=== PATIENT | male | born 1945 ===

== ENCOUNTER 2025-06-04 09:06 | Emergency (ER) | payer MEDICAID, SELFPAY ==
--- NOTE | ~2025-06-04 | XR_ITS ---
EXAMINATION: XR FOOT, RIGHT CLINICAL INFORMATION: pain, swelling COMPARISON: None available. TECHNIQUE: AP, lateral, and oblique views of the right foot. FINDINGS: There is diffuse low bone mineral density. There is a transverse fracture across the central region of the proximal phalanx of the great toe. There is a 9 mm mass dorsal and medial to the distal phalanx of the great toe that does not erode into the cortex. XR/XR foot RT min 3V IMPRESSION: There is severe diffuse osteopenia which limits evaluation for nondisplaced fractures. There is a mildly displaced fracture involving the middle diaphysis of the proximal phalanx of the great toe. 9 mm soft tissue mass is present in the dorsal medial distal great toe. Electronically signed by: Anthony Lema MD 06/04/2025 10:55 AM EDT
--- NOTE | ~2025-06-04 | XR_ITS ---
EXAMINATION: XR CHEST CLINICAL INFORMATION: cough COMPARISON: None available. TECHNIQUE: Frontal view of the chest was obtained. FINDINGS: The cardiac silhouette is enlarged. There is moderate vascular calcification in the aortic arch. There are prominent perihilar pulmonary markings. There is widening of the superior mediastinum. XR/XR chest 1V IMPRESSION: Cardiomegaly and pulmonary vascular congestion. There is widening of the superior mediastinum. This could be related to thyroid goiter, but other etiologies such as lymphoma, lymphadenopathy, thymic enlargement or mass, or other mass/neoplasm is not ruled out. Electronically signed by: Anthony Lema MD 06/04/2025 11:00 AM EDT
--- NOTE | ~2025-06-04 | CT_ITS ---
EXAMINATION: CT HEAD WITHOUT CONTRAST CLINICAL INFORMATION: Fall, on Lovenox. COMPARISON: None available. TECHNIQUE: Contiguous axial imaging was performed from the skull base to vertex without intravenous administration of contrast. This CT examination was performed using dose optimization techniques as appropriate, variously including the following: *Automated exposure control *Adjustment of mA and/or kV according to patient size (this includes techniques or standardized protocols for targeted exams where dose is matched to indication/reason for exam; i.e. extremities or head) *Use of iterative reconstruction technique FINDINGS: There is no evidence of intracranial hemorrhage or extra-axial fluid collection. There is no mass effect, or edema. No CT evidence of acute territorial infarct. Ventricles, sulci, and cisterns are diffusely somewhat prominent in keeping with age advanced cerebral and cerebellar volume loss. No hydrocephalus. No midline shift. Negative hyperdense MCA sign. Negative insular ribbon sign. Patchy periventricular and deep white matter hypoattenuation is consistent with moderate to severe small vessel ischemic changes. 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 There is an old lacunar type infarct in the right anterior makenna. Mild atheromatous calcification of the bilateral carotid siphons and V4 segments vertebral arteries bilaterally. Globes and orbital contents image normally. No extracranial soft tissue abnormalities. Mild mucosal disease in the paranasal sinuses. The mastoid air cells, and tympanic cavities are normally aerated. No suspicious bony abnormalities. There are no acute fractures evident. CT/CT head/brain wo IV con IMPRESSION: 1. No acute intracranial abnormality. No fracture evident 2. Chronic changes as discussed. Electronically signed by: Lg Sears MD 06/04/2025 10:37 AM EDT
[2025-06-04 09:20] VITALS: BP 148/63; BP 152/76; PULSE 75; PULSE 79; RESP 18; TEMP 37.1; O2SAT 96; BMI 21.7
--- NOTE | 2025-06-04 09:51 | ED_ITS ---
HPI - Fall General Chief Complaint: Fall Stated Complaint: FALL,-HS,RLE PAIN,+CCOLLAR,+COVID PER EMS Time Seen by Provider: 06/04/25 09:22 Source: patient, EMS and old records reviewed Mode of arrival: EMS Limitations: no limitations History of Present Illness ED Provider: LETI HPI Narrative: 79 yo male from [facility] full code - ESRD on HD MWF, HTN, HLD, DVT on therapeutic lovenox who was dx with COVID 3 days ago at [facility]. He has been having R great toe pain for a few days as well. He denies trauma. He has no numbness or weakness. He notes he was trying to get up out of WC today and couldn't bear his weight so he slipped and fell to the ground. He denies headstrike. He c/o pain to the R foot. Staff states he was seen at 7am and then called for help after fall. No prolonged downtime. He reports no hx of gout in past. MD complaint: fall Onset (ago): minute(s) ([employer]) Fall from: wheelchair Fall witnessed: no Place fall occurred: [facility] Loss of consciousness: none Prolonged down time: no Symptoms prior to fall: none Context: tripped/slipped Severity: mild Associated symptoms (after fall): other (R foot pain pre fall which he states caused the fall ) Related Data Allergies Allergy/AdvReac Type Severity Reaction Status Date / Time No Known Allergies Allergy Verified 06/04/25 09:22 Review of Systems 2 Review of Systems: Constitutional : No Fever, No Chills ENT/Mouth : No Ear Pain, No Hoarseness, No sore throat Eyes: No Eye Pain, No Swelling, No Redness, No Foreign Body Cardiovascular : No Chest Pain, No SOB Respiratory : No Cough, No Dyspnea Gastrointestinal : No Nausea, No Vomiting, No Diarrhea, No abdominal Pain Genitourinary : No Dysuria, No Hematuria Musculoskeletal : positive joint pain, No Myalgias, No Joint Swelling Skin : No Skin lacerations, No rash Neuro : No Weakness, No Numbness, No Loss of Consciousness, No Dizziness, No Headache All other systems reviewed and are negative PMFSH Past Medical History Attestation statement: The following information was validated with the patient. Source: old records reviewed Medical History ESRD (end stage renal disease) HLD (hyperlipidemia) HTN (hypertension) DVT (deep venous thrombosis) Social History Social History (Updated 06/04/25 @ 09:59 by Elva Mars DO) Patient Tobacco Use Status: Tobacco use Unknown Advance Directives: Yes Advance Directives Information Provided: No Advance Directives on File: No Physical Exam 2 Vital Signs: Vital Signs: Last Vital Signs Temp 98.7 F 06/04/25 09:20 Pulse 79 06/04/25 09:20 Resp 18 06/04/25 09:20 BP 148/63 H 06/04/25 09:20 Pulse Ox 96 06/04/25 09:20 O2 Del Method Room Air 06/04/25 09:20 BMI result Body Mass Index 21.7 Appearance: Alert. Oriented X3. No acute distress. Eyes: Pupils equal, round and reactive to light. ENT: Pharynx normal. Neck: Normal inspection. Neck supple. no midline neck pain or ttp CVS: Normal heart rate and rhythm. Pulses normal. LUE avf + thrill felt Respiratory: No respiratory distress. Breath sounds normal. coarse cough Abdomen: Soft and nontender. Skin: Skin warm and dry. Normal skin color. Normal skin turgor. Extremities: No lower extremity edema. R foot ttp along 1st MTP and mild warmth and redness. ttp along the 1st MTP joint Neuro: Oriented X 3. No motor deficit. No sensory deficit. CN2-12 intact Medications Administered Discontinued Medications Generic Name Dose Route Start Last Admin Trade Name Freq PRN Reason Stop Dose Admin Acetaminophen 650 mg 06/04/25 09:35 06/04/25 10:05 Acetaminophen 325 Mg Tablet PO 06/04/25 09:36 650 mg ONCE ONE Administration Ceftriaxone Sodium 1 gm 06/04/25 09:35 06/04/25 10:00 Ceftriaxone Sodium 1 Gm Vial IVPUSH 06/04/25 09:36 1 gm ONCE ONE Administration Oxycodone HCl 5 mg 06/04/25 09:33 06/04/25 10:04 Oxycodone Hcl Immed Release 5 Mg Tablet PO 06/04/25 09:34 5 mg ONCE ONE Administration Procedures Orthopedic Splinting/Casting Injury #1: Side: right Lower Extremity Injury Location: foot Lower Extremity Immobilizer: post-op shoe Medical Decision Making Medical Decision Making MDM Narrative: 79 yo male from [facility] full code - ESRD on HD MWF, HTN, HLD, DVT on therapeutic lovenox here with c/o mechanical trip and fall after trying to put weight on R foot - he has pain in R great toe for a few days. He denies any known injury - numbness. When he fell he denies injury to head/neck. He was just dx with COVID as well 3 days ago which could be source of fever. At this time possible gout, COVID, viral infection, pneumonia - ICH will obtain labs, cultures, CXR, foot xray, CT head for ICH given lovenox use, uric acid. PO pain control and tylenol. Differential Diagnosis Differential Diagnoses: The differential diagnosis associated with the presentation includes gout, cellulitis, COVID, fall Admission/Observation Consideration of admission/observation: Escalation of care including admission/observation considered no hypoxia has broken toe no signs of infection on foot can be sent out with outpatient imaging and work up Lab Data MDM Lab Attestation statement: I reviewed the patient's lab results. 06/04/25 10:01 06/04/25 10:01 Labs: Lab Results 06/04/25 06/04/25 Range/Units 10:00 10:01 WBC 4.6 L (4.8-10.8) X10*3/uL RBC 3.61 L (4.60-5.80) X10*6/uL Hgb 11.6 L (14.0-18.0) g/dl Hct 35.4 L (42.0-52.0) % MCV 98.1 H (80.0-98.0) fL MCH 32.1 (27.0-33.0) pg MCHC 32.8 (31.0-36.0) g/dl RDW 15.7 (11.0-16.0) % Plt Count 192 (160-400) X10*3/uL MPV 10.2 (9.4-12.4) fL Immature Gran % (Auto) 0.2 (0.0-0.4) % Neut % (Auto) 70.2 (45-73) % Lymph % (Auto) 12.0 L (20-40) % [place] % (Auto) 13.9 H (2-11) % Eos % (Auto) 2.6 (0-4) % Baso % (Auto) 1.1 (0-2) % Lymph # (Auto) 0.6 L (1.2-4.9) X10*3/uL [place] # (Auto) 0.6 (0.1-1.2) X10*3/uL Eos # (Auto) 0.1 (0.0-0.4) X10*3/uL Baso # (Auto) 0.1 (0.0-0.2) X10*3/uL Abs Immat Gran (auto) 0.01 (0.00-0.03) X10*3/uL Absolute Neuts (auto) 3.2 (2.0-8.3) x10*3/uL Absolute Nucleated RBC 0.000 (0.0-0.012) X10*3/uL Nucleated RBC % (auto) 0.0 (0.0-0.2) /100WBC ESR 90 H (0-15) MM/HR Sodium 135 (135-145) mmol/L Potassium 5.1 (3.3-5.1) mmol/L Chloride 96 (96-108) mmol/L Carbon Dioxide 24 (22-29) mmol/L Anion Gap 20 (12-20) BUN 43 H (9-16) mg/dL Creatinine 7.75 H* (0.5-1.4) mg/dL Estim Creat Clear Calc 6.8 Estimated GFR 7 Random Glucose 86 (60-115) mg/dL Lactic Acid 1.2 (0.5-2.0) mmol/L Calcium 9.5 (8.4-10.2) mg/dL Magnesium 2.0 (1.6-2.6) mg/dL Total Bilirubin 0.4 (0.0-1.0) mg/dL Direct Bilirubin 0.1 (0.0-0.5) mg/dL AST 40 H (5-37) U/L ALT 17 (0-40) U/L Alkaline Phosphatase 86 (39-117) U/L C-Reactive Protein 6.24 H (< or = 0.50) mg/dL Total Protein 8.8 H (6.5-8.0) g/dL Albumin 3.9 (3.5-5.0) g/dL Influenza Type A (PCR) NEGATIVE (Negative) Influenza Type B (PCR) NEGATIVE (Negative) RSV RNA Qual (PCR) NEGATIVE (Negative) SARS-CoV-2 RNA (RT-PCR) POSITIVE A (Negative) Independent Interpretation I performed an independent interpretation of an: Plain X-Ray (abnormal ) and CT Scan (no trauma) Radiology Impression Discussion of test interpretation with radiology: I have reviewed the radiologist's reading. Independent Historian Clinical information obtained from an independent historian. History obtained from or confirmed by: EMS External Record Review External record reviewed: Outpatient record Prescription Management I considered prescription management with: Pain Medication Discharge Plan Discharge Clinical Impression: COVID-19, Abnormal chest x-ray Closed fracture of great toe Qualifiers: Encounter type: initial encounter Phalanx: unspecified phalanx Fracture alignment: displaced Laterality: right Qualified Code(s): S92.401A - Displaced unspecified fracture of right great toe, initial encounter for closed fracture Patient Disposition: Home, Self-Care Instructions: COVID-19 and Chronic Health Conditions (ED), Toe Fracture (ED) Additional Instructions: head CT normal labs reassuring CXR abnormal needs outpatient CT chest after illness to make sure abnormal mediastinum improves great toe has toe fracture - wear boot and no weight bearing until he sees orthopedics return for worsening pain, swelling, cold foot, redness, or any other concerns need to schedule appointment with orthopedics FINDINGS: There is diffuse low bone mineral density. There is a transverse fracture across the central region of the proximal phalanx of the great toe. There is a 9 mm mass dorsal and medial to the distal phalanx of the great toe that does not erode into the cortex. XR/XR foot RT min 3V IMPRESSION: There is severe diffuse osteopenia which limits evaluation for nondisplaced fractures. There is a mildly displaced fracture involving the middle diaphysis of the proximal phalanx of the great toe. 9 mm soft tissue mass is present in the dorsal medial distal great toe. XR/XR chest 1V IMPRESSION: Cardiomegaly and pulmonary vascular congestion. There is widening of the superior mediastinum. This could be related to thyroid goiter, but other etiologies such as lymphoma, lymphadenopathy, thymic enlargement or mass, or other mass/neoplasm is not ruled out. Referrals: [facility] [Provider Group] Print Language: Indonesian
[2025-06-04] MEDS: oxyCODONE HCl Immed Release 5 MG TABLET PO (10:04)
[2025-06-04 10:09] LABS: MANUAL DIFF FLAG NO
[2025-06-04 10:11] LABS: Hematocrit 35.4 % (42.0-52.0); Hemoglobin 11.6 g/dl (14.0-18.0); Imm Gran Abs Auto 0.01 X10*3/uL (0.00-0.03); Imm Gran Pct Auto 0.2 % (0.0-0.4); Lymphocytes Absolute Auto 0.6 X10*3/uL (1.2-4.9); Mean Corpuscular HGB Conc 32.8 g/dl (31.0-36.0); Mean Corpuscular Hemoglobin 32.1 pg (27.0-33.0); Mean Corpuscular Volume 98.1 fL (80.0-98.0); NRBC Abs Auto 0.000 X10*3/uL (0.0-0.012); NRBC Pct Auto 0.0 /100WBC (0.0-0.2); Platelet Count 192 X10*3/uL (160-400); Red Blood Count 3.61 X10*6/uL (4.60-5.80); White Blood Count 4.6 X10*3/uL (4.8-10.8)
--- OUTSIDE RECORDS SUMMARY | 2025-06-04 10:21 | XMS_ITS | Encounter Summary ---
Author Organization [facility], Address [address] [place] [address] Phone Care Team Providers Care Turbine Inspector Name Role Phone Unavailable Primary Care Provider Unavailabl e Encounter Details Date Type Department Care Team (Late st Contact Info) Description 03/21/2025 Orders Only [facility], - [facility] [address] [place] [id number] Allie Montoya [address] [place] [phone] Social History Tobacco Use Types Packs/Day Years Used Date Smoking Tobacco: Never Assessed Sex and Gender Information Value Date Recorded Sex Assigned at Not on file Legal Sex Male 10:51 AM EDT Gender Identity Not on file Sexual Orientation Not on file documented as of this encounter Plan of Treatment Not on file documented as of this encounter Visit Diagnoses Not on filedocumented in this encounter
--- OUTSIDE RECORDS SUMMARY | 2025-06-04 10:21 | XMS_ITS | Encounter Summary ---
Author Organization [employer] Address [address] [place] [address] Care Team Providers Care Auger Mill Operator Name Role Phone Nakul Elizalde MD Primary Care Provider [phone] Encounter Details Date Type Department Care Team (Late st Contact Info) Description 01/30/2025 Lab Requisition [facility] - Main Lab [address] [facility] [place] [address] Nakul Elizalde MD [address] [place] [address] Essential (primary) hypertension; Vitamin D deficiency, unspecified; Hypothyroidism, unspecified Social History Tobacco Use Types Packs/Day Years Used Date Smoking Tobacco: Never Assessed Sex and Gender Information Value Date Recorded Sex Assigned at Not on file Legal Sex Male 12:21 PM EDT Gender Identity Not on file Sexual Orientation Not on file documented as of this encounter Plan of Treatment Not on file documented as of this encounter Procedures Procedure Name Priority Date/Time Associated Diagnosis Comments VITAMIN D 25 HYDROXY Routine 01/30/2025 5:38 AM EDT Essential (primary) hypertension Vitamin D deficiency, unspecified Hypothyroidism, unspecified COMPLETE BLOOD COUNT Routine 01/30/2025 5:38 AM EDT Essential (primary) hypertension Vitamin D deficiency, unspecified Hypothyroidism, unspecified THYROID STIMULATING HORMONE Routine 01/30/2025 5:38 AM EDT Essential (primary) hypertension Vitamin D deficiency, unspecified Hypothyroidism, unspecified BASIC METABOLIC PANEL Routine 01/30/2025 5:38 AM EDT Essential (primary) hypertension Vitamin D deficiency, unspecified Hypothyroidism, unspecified documented in this encounter Results * Thyroid stimulating hormone (01/30/2025 5:38 AM EDT) TSH 1.10 0.40 - 4.00 mcIU/mL LAB CHEMISTRY METHOD 01/30/2025 10:43 PM EDT [facility] Blood Venous blood specimen / Unknown Venipuncture / Unknown 01/30/2025 5:38 AM EDT 01/30/2025 12:25 PM EDT us Nakul Elizalde MD LAB BLOOD ORDERABLES Final R esult Performing Organization Address [facility]/ZIP Co de Phone Number [facility] [address] [place] [address], [place] [phone] * (ABNORMAL) Vitamin D 25 hydroxy (01/30/2025 5:38 AM EDT) Pathologist [facility] Vit D, 25-Hydroxy 18.9(L) 30.0 - 80.0 ng/mL LAB CHEMISTRY METHOD 01/30/2025 10:43 PM EDT [facility] Blood Venous blood specimen / Unknown Venipuncture / Unknown 01/30/2025 5:38 AM EDT 01/30/2025 12:25 PM EDT us Nakul Elizalde MD [facility] Per[facility] Organization Address [facility]/ZIP Ne de Phone Number [facility] [address] [place] [address], [place] [phone] * (ABNORMAL) Basic metabolic panel (01/30/2025 5:38 AM EDT) Pathologist [facility] Sodium 133 133 - 145 mmol/L LAB CHEMISTRY METHOD 01/30/2025 10:01 PM EDT [facility] Potassium 5.0 3.5 - 5.5 mmol/L LAB CHEMISTRY METHOD 01/30/2025 10:01 PM EDT [facility] Chloride 96 96 - 110 mmol/L LAB [facility] CO2 24 21 - 32 mmol/L LAB CHEMISTRY METHOD 01/30/2025 10:[address] [facility] Anion Gap 13(H) 3 - 11 LAB CHEMISTRY METHOD 01/30/2025 10:[address] [facility] Glucose 69(L) 70 - 100 mg/dL LAB CHEMISTRY METHOD 01/30/2025 10:[address] [facility] BUN 68(H) 5 - 25 mg/dL LAB CHEMISTRY METHOD 01/30/2025 10:[address] [facility] Creatinine 8.52(H) 0.70 - 1.30 mg/dL LAB CHEMISTRY METHOD 01/30/2025 10:[address] [facility] eGFR 6(L) >=60 mL/min/1. 73m2 LAB CHEMISTRY METHOD 01/30/2025 10:[address] [facility] Comment:Calculation based on the Chronic Kidney Disease Epidemiology Collaboration (CKD-EPI) equation refit without adjustment for race. BUN/Creatinine Ratio 8.0 LAB CHEMISTRY METHOD 01/30/2025 10:[address] [facility] Calcium 10.2 8.5 - 10.5 mg/dL LAB CHEMISTRY METHOD 01/30/2025 10:[address] [facility] Blood Venous blood specimen / Unknown Venipuncture / Unknown 01/30/2025 5:38 AM EDT 01/30/2025 12:25 PM EDT us Nakul Elizalde MD LAB BLOOD ORDERABLES Final R esult [facility] [address] [place] [address], * (ABNORMAL) Complete blood count (01/30/2025 5:38 AM EDT) WBC 5.3 4.8 - 10.8 K/mcL LAB HEMETOLOGY METHOD 01/30/2025 12:[address] [facility] RBC 4.10(L) 4.50 - 5.50 M/mcL LAB HEMETOLOGY METHOD 01/30/2025 12:[address] [facility] Hemoglobin 12.8(L) 13.5 - 17.5 g/dL LAB HEMETOLOGY METHOD 01/30/2025 12:[address] [facility] Hematocrit 41.4(L) 42.0 - 54.0 % LAB HEMETOLOGY METHOD 01/30/2025 12:[address] [facility] MCV 100.7(H) 79.0 - 98.0 FL LAB HEMETOLOGY METHOD 01/30/2025 12:[address] [facility] MCH 31.1 27.0 - 32.0 pcg LAB HEMETOLOGY METHOD 01/30/2025 12:[address] [facility] MCHC 30.9(L) 32.0 - 37.0 g/dL LAB HEMETOLOGY METHOD 01/30/2025 12:[address] [facility] RDW 15.1(H) 11.0 - 15.0 % LAB HEMETOLOGY METHOD 01/30/2025 12:[address] [facility] Platelets 162 130 - 400 K/mcL LAB HEMETOLOGY METHOD 01/30/2025 12:[address] [facility] MPV 10.9 7.0 - 11.0 FL LAB HEMETOLOGY METHOD 01/30/2025 12:[address] [facility] NRBC 0.0 <1.0 % LAB HEMETOLOGY METHOD 01/30/2025 12:[address] [facility] NRBC Absolute 0.00 <0.10 K/mcL LAB HEMETOLOGY METHOD 01/30/2025 12:47 PM EDT [facility] Blood Venous blood specimen / Unknown Venipuncture / Unknown 01/30/2025 5:38 AM EDT 01/30/2025 12:25 PM EDT Nakul Elizalde MD LAB BLOOD ORDERABLES Final R esult [facility] ([facility]) [facility] [address] [place] [address], documented in this encounter Visit Diagnoses Diagnosis Essential (primary) hypertension Unspecified essential hypertension Vitamin D deficiency, unspecified Hypothyroidism, unspecified documented in this encounter Care Teams Auger Mill Operator Relationship Specialty Start Date End Date Nakul Elizalde MD [address] [place] [address] PCP - General Family Medicine 01/30/25 documented as of this encounter
[2025-06-04 10:38] LABS: Alanine Aminotransferase 17 U/L (0-40); Albumin Level 3.9 g/dL (3.5-5.0); Alkaline Phosphatase 86 U/L (39-117); Anion Gap 20 (12-20); Aspartate Amino Transferase 40 U/L (5-37); Blood Urea Nitrogen 43 mg/dL (9-16); Calcium 9.5 mg/dL (8.4-10.2); Carbon Dioxide 24 mmol/L (22-29); Chloride 96 mmol/L (96-108); Creatinine Clr Calc Pharmacy 6.8; Estimated Glomerular Filt Rate 7; Magnesium 2.0 mg/dL (1.6-2.6); Potassium 5.1 mmol/L (3.3-5.1); Sodium 135 mmol/L (135-145); Total Protein 8.8 g/dL (6.5-8.0)
--- NOTE | 2025-06-04 10:48 | PC.NURSE ---
fistula on left arm. no BP sign up. +bruit/thrill. Pt states dialysis M/W/F
[2025-06-04 10:50] LABS: Resp Syncy Virus RNA Qual PCR NEGATIVE (Negative); SARS COV2 PCR INHOUSE POSITIVE (Negative)
[2025-06-04 12:43] VITALS: BP 129/57; PULSE 85; RESP 18; TEMP 37.4; O2SAT 94
[2025-06-04 12:52] LABS: Uric Acid 5.0 mg/dL (3.4-7.0)
== END 2025-06-04 15:35 ==
PROVIDERS: Emergency Provider Emergency Medicine; PCP Emergency Medicine
DX: S92.401A Displaced unspecified fracture of right great toe, initial encounter for closed fracture (principal); U07.1 COVID-19; M79.674 Pain in right toe(s); N18.6 End stage renal disease; Z99.2 Dependence on renal dialysis; E78.5 Hyperlipidemia, unspecified; W01.0XXA Fall on same level from slipping, tripping and stumbling without subsequent striking against object, initial encounter; Y93.9 Activity, unspecified; Y92.9 Unspecified place or not applicable; Y99.9 Unspecified external cause status
CPT/HCPCS: 36415; 70450; 71045; 73630; 80048; 80076; 83605; 83735; 84550; 85025; 85652; 86140; 87040; 87637; 96374; 99284; J0696

== ENCOUNTER → 2025-06-04 09:33 | Outpatient (BNV) | payer MEDICAID, SELFPAY | PROVIDERS: Emergency Provider Emergency Medicine; PCP Emergency Medicine; Visit Provider Radiology Diagnostic Radiology | DX: Z04.3 Encounter for examination and observation following other accident (principal); I51.7 Cardiomegaly; J81.0 Acute pulmonary edema; R22.42 Localized swelling, mass and lump, left lower limb | CPT/HCPCS: 70450; 71045; 73630 ==

== ENCOUNTER 2025-07-08 16:09 | Inpatient (IN) | payer MEDICAID, SELFPAY ==
--- NOTE | 2025-07-08 | ECG_ITS ---
Test Reason : SOB Blood Pressure : */* mmHG Vent. Rate : 80 BPM Atrial Rate : 80 BPM P-R Int : 212 ms QRS Dur : 134 ms QT Int : 422 ms P-R-T Axes : 37 -66 57 degrees QTcB Int : 486 ms Sinus rhythm with 1st degree A-V block Right bundle branch block Left anterior fascicular block Bifascicular block Abnormal ECG No previous ECGs available Referred By: Generic ED Physician Electronically Signed By: MARIA DEL ROSARIO CARDONA MD
--- NOTE | ~2025-07-08 | XR_ITS ---
CLINICAL HISTORY: sob 1 view chest x-ray Comparison: CR/SR - XR CHEST 1 VIEW - 06/04/25 10:23 EDT Findings: No consolidation, pleural effusion or pneumothorax. Stable superior mediastinal widening. Stable cardiomegaly with a densely calcified aorta. There is pulmonary vascular congestion. No acute fracture. IMPRESSION: Cardiomegaly with pulmonary vascular congestion. This document has been electronically signed by: Kym Navarrete DO on 07/08/2025 18:20:41
[2025-07-08 16:21] VITALS: BP 170/94; BP 181/93; PULSE 81; RESP 20; TEMP 37.1; O2SAT 94; BMI 22.0
[2025-07-08 16:28] VITALS: BP 170/94; PULSE 81; RESP 20; TEMP 37.1; O2SAT 94
--- NOTE | 2025-07-08 17:03 | ED_ITS ---
HPI - SOB/Dyspnea General Chief Complaint: Dyspnea Stated Complaint: SOB, missed dyalisis today Time Seen by Provider: 07/08/25 16:39 History of Present Illness HPI Narrative: Patient is a 79-year-old male with a history of end-stage renal disease baseline on dialysis Tuesday. Patient complained that he has a hernia in the left groin area. The hernia presents himself when he goes to dialysis. He is scheduled to get surgery in a couple of weeks. Patient feels he can not wait anymore. Came to the ED wanting dialysis and wanting to have his hernia repaired. Patient also had a mild cough. There is no chest pain there is no diaphoresis patient got his dialysis on Tuesday. There is no fever no chills. No vomiting. No diaphoresis. No chest pain. No nausea no vomiting no change in bowel movements Related Data Allergies Allergy/AdvReac Type Severity Reaction Status Date / Time No Known Allergies Allergy Verified 07/08/25 16:23 Review of Systems 2 Review of Systems: Positive history of shortness of breath PMFSH Past Medical History Attestation statement: The following information was validated with the patient. Medical History ESRD (end stage renal disease) HLD (hyperlipidemia) HTN (hypertension) DVT (deep venous thrombosis) Social History Social History Patient Tobacco Use Status: Tobacco use Unknown Smoked in Last 30 Days: No Use of substances other than those prescribed or required for medical reasons: No Advance Directives: No Advance Directives Information Provided: No Do you have a plan to hurt others: No Plan Physical Exam 2 Exam: Exam: Appearance: Alert. Oriented X3. No acute distress. Eyes: Pupils equal, round and reactive to light. ENT: Pharynx normal. Neck: Normal inspection. Neck supple. No lymph nodes noted. No crepitus CVS: Normal heart rate and rhythm. Pulses normal. Normal S1 and S2 Respiratory: No respiratory distress. Breath sounds normal. No Wheezing. No rales Abdomen: Soft and nontender. No rigidity. No distention. good BS x4. There is a hernia that was palpable in the left inguinal area. Clearly reducible. Skin: Skin warm and dry. Normal skin color. Normal skin turgor. Extremities: No lower extremity edema. Neurovascular intact to all extremities. No Lacerations. No Rash Neuro: Oriented X 3. No motor deficit. No sensory deficit. Moving all extermities. No slurred speech Vital Signs: Vital Signs: Last Vital Signs Temp 98.7 F 07/08/25 16:28 Pulse 81 07/08/25 16:28 Resp 20 07/08/25 16:28 BP 170/94 H 07/08/25 16:28 Pulse Ox 94 07/08/25 16:28 O2 Del Method Nasal Cannula 07/08/25 16:28 Oxygen Flow Rate 2 07/08/25 16:21 BMI result Body Mass Index 22.0 Medications Administered Generic Name Dose Route Start Last Admin Trade Name Freq PRN Reason Stop Dose Admin Calcium Gluconate 1 gm in 50 mls @ 50 mls/hr 07/08/25 18:06 07/08/25 18:15 Calcium Gluconate IV 07/08/25 19:05 50 mls/hr ONCE ONE Administration Discontinued Medications Generic Name Dose Route Start Last Admin Trade Name Freq PRN Reason Stop Dose Admin Dextrose 25 gm 07/08/25 18:05 07/08/25 18:14 Dextrose 50 % 25 Gm/50 Ml Syringe IVPUSH 07/08/25 18:06 25 gm ONCE ONE Administration Insulin Human Regular 5 unit 07/08/25 18:05 07/08/25 18:15 Insulin Regular, Human 100 Unit/Ml 10 Ml Vial IVPUSH 07/08/25 18:06 5 unit ONCE ONE Administration Sodium Bicarbonate 50 meq 07/08/25 18:05 07/08/25 18:15 Sodium Bicarbonate 8.4% 50 Meq/50 Ml Syringe IVPUSH 07/08/25 18:06 50 meq ONCE ONE Administration Sodium Zirconium Cyclosilicate 10 gm 07/08/25 18:05 07/08/25 18:15 Sodium Zirconium Cyclosilicate 10 Gm Powd.Pack PO 07/08/25 18:06 10 gm ONCE ONE Administration Medical Decision Making Medical Decision Making [facility] Narrative: Patient is a 79-year-old male with a history of end-stage renal disease. He missed his dialysis because he wanted hernia surgery today. His hernia is completely reducible. My interpretation of his chest x-ray showed mild CHF. His O2 sat is 92% on room air. He is in no respiratory distress he is lying flat. My interpretation of his EKG showed a sinus rhythm heart rate is 80 there is significant peaked T-waves noted. Patient's potassium came back at 6.3. We gave patient calcium, insulin/glucose, sodium bicarb. I contacted the nephrology team immediately. Patient going to dialysis. Hospitalist team also contacted for admission. Currently in critical condition. Differential Diagnosis Differential Diagnoses: The differential diagnosis associated with the presentation includes End-stage renal disease, hyperkalemia, electrolyte disturbance Admission/Observation Consideration of admission/observation: Escalation of care including admission/observation considered Consult Healthcare Provider Management of the patient was discussed with: Hospitalist and Integration Software Developer (Nephrology) Lab Data MDM Lab Attestation statement: I reviewed the patient's lab results. 07/08/25 17:36 07/08/25 17:36 Labs: Lab Results 07/08/25 07/08/25 07/08/25 Range/Units 17:36 17:41 18:13 WBC 7.0 (4.8-10.8) X10*3/uL RBC 3.76 L (4.60-5.80) X10*6/uL Hgb 11.7 L (14.0-18.0) g/dl Hct 36.0 L (42.0-52.0) % MCV 95.7 (80.0-98.0) fL MCH 31.1 (27.0-33.0) pg MCHC 32.5 (31.0-36.0) g/dl RDW 17.5 H (11.0-16.0) % Plt Count 157 L (160-400) X10*3/uL MPV 9.9 (9.4-12.4) fL Immature Gran % (Auto) 0.1 (0.0-0.4) % Neut % (Auto) 78.8 H (45-73) % Lymph % (Auto) 9.7 L (20-40) % [place] % (Auto) 6.1 (2-11) % Eos % (Auto) 4.7 H (0-4) % Baso % (Auto) 0.6 (0-2) % Lymph # (Auto) 0.7 L (1.2-4.9) X10*3/uL [place] # (Auto) 0.4 (0.1-1.2) X10*3/uL Eos # (Auto) 0.3 (0.0-0.4) X10*3/uL Baso # (Auto) 0.0 (0.0-0.2) X10*3/uL Abs Immat Gran (auto) 0.01 (0.00-0.03) X10*3/uL Absolute Neuts (auto) 5.5 (2.0-8.3) x10*3/uL Absolute Nucleated RBC 0.000 (0.0-0.012) X10*3/uL Nucleated RBC % (auto) 0.0 (0.0-0.2) /100WBC VBG pH 7.43 (7.32-7.43) VBG pCO2 42 mmHg VBG pO2 46 mmHg VBG HCO3 28 H (22-26) mmol/L VBG O2 Saturation 66.0 % VBG Base Excess 4.0 mmol/L Sodium 145 (135-145) mmol/L Potassium 6.3 H* D (3.3-5.1) mmol/L Chloride 102 (96-108) mmol/L Carbon Dioxide 26 (22-29) mmol/L Anion Gap 23 H (12-20) BUN 63 H (9-16) mg/dL Creatinine 10.02 H* (0.5-1.4) mg/dL Estim Creat Clear Calc 5.3 Estimated GFR 5 POC Glucose 76 (60-115) mg/dL Random Glucose 82 (60-115) mg/dL Calcium 9.4 (8.4-10.2) mg/dL Magnesium 2.0 (1.6-2.6) mg/dL Total Bilirubin 0.4 (0.0-1.0) mg/dL AST 20 (5-37) U/L ALT 12 (0-40) U/L Alkaline Phosphatase 117 (39-117) U/L Troponin I High Sens 108.6 H* (<3.5-35.0) ng/L Total Protein 8.3 H (6.5-8.0) g/dL Albumin 3.9 (3.5-5.0) g/dL Influenza Type A (PCR) NEGATIVE (Negative) Influenza Type B (PCR) NEGATIVE (Negative) RSV RNA Qual (PCR) NEGATIVE (Negative) SARS-CoV-2 RNA (RT-PCR) NEGATIVE (Negative) Independent Interpretation I performed an independent interpretation of an: EKG (My interpretation of patient's EKG showed a sinus rhythm heart rate is 80 SD QRS QTC within normal limits there is significant peaked T-waves noted on EKG.), Plain X-Ray (My interpretation patient's chest x-ray showed pulmonary edema) and CT Scan Radiology Impression Discussion of test interpretation with radiology: I have reviewed the radiologist's reading. External Record Review External record reviewed: Inpatient record Chronic Conditions End-stage renal disease Social Determinants Patient?s care significantly limited by Social Determinants of Health including: Problems related to primary support group and Unemployment Critical Care Time Critical Care Time Critical Care Time: Yes Total Critical Care Time: 40 Attestation: I have personally provided 40 minutes of critical care time exclusive of time spent on separately billable procedures. ?Time includes review of lab data, radiology results, discussion with consultants, and monitoring for potential decompensation. ?Interventions were performed as documented above Discharge Plan Discharge Clinical Impression: Acute hyperkalemia Patient Disposition: Admitted As Inpatient Print Language: [place]
--- NOTE | 2025-07-08 17:07 | PC.NURSE ---
Attempted to titrate patient to RA O2 87% RA applied 2L NC 93%
[2025-07-08 17:41] LABS: MANUAL DIFF FLAG NO
[2025-07-08 17:43] LABS: Hematocrit 36.0 % (42.0-52.0); Hemoglobin 11.7 g/dl (14.0-18.0); Imm Gran Abs Auto 0.01 X10*3/uL (0.00-0.03); Imm Gran Pct Auto 0.1 % (0.0-0.4); Lymphocytes Absolute Auto 0.7 X10*3/uL (1.2-4.9); Mean Corpuscular HGB Conc 32.5 g/dl (31.0-36.0); Mean Corpuscular Hemoglobin 31.1 pg (27.0-33.0); Mean Corpuscular Volume 95.7 fL (80.0-98.0); NRBC Abs Auto 0.000 X10*3/uL (0.0-0.012); NRBC Pct Auto 0.0 /100WBC (0.0-0.2); Platelet Count 157 X10*3/uL (160-400); Red Blood Count 3.76 X10*6/uL (4.60-5.80); White Blood Count 7.0 X10*3/uL (4.8-10.8)
[2025-07-08 17:45] LABS: VBG HCO3 28 mmol/L (22-26); VBG O2 % Saturation 66.0 %
[2025-07-08 17:45] LABS: Venous Blood Gas Refer to POC result
[2025-07-08 18:03] LABS: Alanine Aminotransferase 12 U/L (0-40); Albumin Level 3.9 g/dL (3.5-5.0); Alkaline Phosphatase 117 U/L (39-117); Anion Gap 23 (12-20); Aspartate Amino Transferase 20 U/L (5-37); Blood Urea Nitrogen 63 mg/dL (9-16); Calcium 9.4 mg/dL (8.4-10.2); Carbon Dioxide 26 mmol/L (22-29); Chloride 102 mmol/L (96-108); Creatinine Clr Calc Pharmacy 5.3; Estimated Glomerular Filt Rate 5; Magnesium 2.0 mg/dL (1.6-2.6); Potassium 6.3 mmol/L (3.3-5.1); Sodium 145 mmol/L (135-145); Total Protein 8.3 g/dL (6.5-8.0)
[2025-07-08 18:10] LABS: Troponin-I High Sensitivity 108.6 ng/L (<3.5-35.0)
[2025-07-08] MEDS: Calcium Gluconate/NaCl,Iso-Osm 1 GM/50 ML PLAST..BAG IV (18:15)
[2025-07-08 18:17] LABS: Glucose, Whole Blood 76 mg/dL (60-115)
[2025-07-08 18:21] LABS: Resp Syncy Virus RNA Qual PCR NEGATIVE (Negative); SARS COV2 PCR INHOUSE NEGATIVE (Negative)
--- OUTSIDE RECORDS SUMMARY | 2025-07-08 18:54 | XMS_ITS | Encounter Summary ---
Author Organization [facility] Address [address] [place] [address] Care Team Providers Care Bungy Jump Master Name Role Phone Nakul Elizalde MD Primary Care Provider [phone] Encounter Details Date Type Department Care Team (Latest Contact Info) Description 03/02/2025 Lab Requisition [facility] - Main Lab [address] [facility] [place] [address] Nakul Elizalde MD [facility] [place] [address] Encounter for other administrative examinations Social History Tobacco Use Types Packs/Day Years [...] Procedure Name Priority Date/Time Associated Diagnosis Comments DRUG ABUSE SCREEN EXPANDED WITH REFLEX CONFIRMATION, URINE Routine 03/01/2025 7:30 AM EDT Encounter for other administrative examinations OPIATES CONFIRMATION, URINE Routine 03/01/2025 7:30 AM EDT Encounter for other administrative examinations documented in this encounter Results * (ABNORMAL) Opiates confirmation, urine (03/01/2025 7:30 AM EDT) Morphine Confirm, Urine 108 ng/mL 03/05/2025 1:09 AM EDT [facility] Codeine Confirm, Urine 3901 ng/mL 03/05/2025 1:09 AM EDT [facility] Hydrocodone Confirm, Urine Negative ng/mL 03/05/2025 1:09 AM EDT [facility] Hydromorphone Confirm, Urine Negative ng/mL 03/05/2025 1:09 AM EDT [facility] Oxycodone Confirm, Urine Negative ng/mL 03/05/2025 1:09 AM EDT [facility] Oxymorphone Confirm, Urine Negative ng/mL 03/05/2025 1:09 AM EDT [facility] Creatinine 15(L) 20 - 250 mg/dL 03/05/2025 1:09 AM EDT [facility] Adulterants Negative 03/05/2025 1:09 AM EDT [facility] Comment: Confirmation (LC/MS/MS) Decision Limits Morphine 25 ng/mL Codeine 25 ng/mL Hydrocodone 25 ng/mL Hydromorphone 25 ng/mL Oxycodone 25 ng/mL Oxymorphone 25 ng/mL DECISION LEVEL SPECIFIC GRAVITY 1.012 < 1.003 Interpretation of creatinine and specific gravity data suggest the sample is not dilute and negative results are valid. Typical creatinine and specific gravity values are 20 - 250 mg/dL and 1.003 - 1.020, respectively. Adulterant Decision Limit: General Oxidants 200 ug/mL The adulterant assay tests for General Oxidants, including Chromates and Nitrites. Adulterants are substances either ingested or added directly to a urine specimen to prevent the detection of drug use. If applicable, any drug confirmation testing reported here was developed and the performance characteristics determined by [facility]. This confirmation testing has not been cleared or approved by the FDA. The laboratory is regulated under CLIA as qualified to perform high-complexity testing. This test is used for patient testing purposes. It should not be regarded as investigational or for research. Test performed at [facility], [address], [place] [address] Rasheeda Lucio MD, PhD - [employer] Coverer Urine Urine specimen obtained by clean catch procedure / Unknown 03/01/2025 7:30 AM EDT 03/02/2025 11:35 AM EDT us Nakul Elizalde MD LAB URINE ORDERABLES Final R esult [facility] [address] [place] [address] * (ABNORMAL) Drug abuse screen expanded with reflex confirmation, urine (03/01/2025 7:30 AM EDT) Amphetamine Screen, Ur Negative Negative LAB CHEMISTRY METHOD 11:35 AM [facility] Comment:Certain OTC medicati ons containing ephedrine, phenylephrine, pseudoephedrine and phenylpropanolamine can cause false positive results. Barbiturate Screen, Ur Negative Negative LAB CHEMISTRY METHOD 5 11:35 AM [facility] Benzodiazepine Screen, Ur Negative Negative LAB CHEMISTRY METHOD 11:35 AM [facility] Cocaine Screen, Ur Negative Negative LAB CHEMISTRY METHOD 5 11:35 AM [facility] Opiate Screen, Ur Positive(A ) Negative LAB CHEMISTRY METHOD 11:35 AM [facility] Cannabinoid (THC) Screen, Ur Negative Negative LAB CHEMISTRY METHOD 11:35 AM [facility] Comment:Specimens from patie nts taking pantoprazole sodium (Protonix) have been shown to produce false positive results. Fentanyl, Ur Negative Negative LAB CHEMISTRY METHOD 5 11:35 AM [facility] Oxycodone Screen, Ur Negative Negative LAB CHEMISTRY METHOD 11:35 AM [facility] Urine Urine specimen obtained by clean catch procedure / Unknown 03/01/2025 7:30 AM EDT 03/02/2025 11:01 AM EDT Narrative [facility] - 03/02/2025 11:35 AM EDT Assay cutoffs: Amphetamines 1000 ng/mL Barbiturates 200 ng/mL Benzodiazepines 200 ng/mL Cocaine 300 ng/mL Fentanyl 1 ng/mL Opiates 300 ng/mL Oxycodone 100 ng/mL THC 50 ng/mL Semi-quantitative assay for screening purposes only. Unconfirmed screening result should not be used for non-medical purposes. *POSITIVE RESULTS ARE AUTOMATICALLY SENT FOR ALTERNATE METHOD CONFIRMATION* us Nakul Elizalde MD LAB URINE ORDERABLES Final R esult [facility] [address] [place] [address], documented in this encounter Visit Diagnoses Diagnosis Encounter for other administrative examinations documented in this encounter Care Teams Bungy Jump Master Relationship Specialty Start Date End Date Nakul Elizalde MD [address] [place] [address] PCP - General Family Medicine 01/30/25 documented as of this encounter
--- OUTSIDE RECORDS SUMMARY | 2025-07-08 18:54 | XMS_ITS | Clinical Summary ---
Author Organization [address] [facility] Address [address] [place] [address] Phone Care Team Providers Care Philosophy Specialist Name Role Phone Nakul Elizalde MD Primary Care Provider Encounters Date Type Department Care Team Description 06/11/2025 Lab Requisition [facility] [address] [place] [phone] Nakul Elizalde MD End stage renal disease ([facility] V24, CMS/[facility]ER[facility] V28) 04/25/2025 Lab Requisition [facility] [address] [place] [phone] Nakul Elizalde MD End stage renal disease (CMS/[facility] V24, CMS/[facility] V28) 04/11/2025 Lab Requisition [facility] [address] [place] [phone] Nakul Elizalde MD Anemia, unspecified 04/10/2025 Lab Requisition [facility] [address] [place] [phone] Nakul Elizalde MD Other long term acute care registered nurse (current) drug therapy 04/08/2025 Lab Requisition [facility] [address] [place] [phone] Nakul Elizalde MD Hemorrhagic disorder due to extrinsic circulating anticoagulants ([facility] V24) from Last 3 Months Social History Tobacco Use Types Packs/Day Years Used Date Smoking Tobacco: Never Assessed Sex and Gender Information Value Date Recorded Sex Assigned at Not on file Legal Sex Male 12:21 PM EDT Gender Identity Not on file Sexual Orientation Not on file Plan of Treatment Health Maintenance Due Date Last Done Comments DTaP,Tdap,and Td Vaccines (1 - Tdap) 1964 Pneumococcal Vaccine: 50+ Years (1 of 1 - PCV) 1995 Zoster Vaccines (1 of 2) 1995 RSV Immunization Adult Patients (1 - 1-dose 75+ series) 2020 Depression Screening 10/31/2024 Cholesterol Screening (Lipid Panel) 01/31/2025 Falls Risk Assessment 01/31/2025 Hepatitis C Screening 01/31/2025 Social Influencers of Health Screening 01/31/2025 COVID-19 Vaccine (1 - 2023-2 5 season) 2025 Influenza Vaccine (#1) 2025 Hypertension/CHF/CAD Annual BMP Blood Test 03/15/2026 03/15/2025, 01/30/2025 HIB Vaccines Aged Out No longer eligi ble based on patient's age to complete this topic HPV Vaccines Aged Out No longer eligi ble based on patient's age to complete this topic Hepatitis A Vaccines Aged Out No long er eligible based on patient's age to complete this topic Hepatitis B Vaccines Aged Out No long er eligible based on patient's age to complete this topic IPV Vaccines Aged Out No longer eligi ble based on patient's age to complete this topic MMR Vaccines Aged Out No longer eligi ble based on patient's age to complete this topic Meningococcal ACWY Vaccine Aged Out N o longer eligible based on patient's age to complete this topic Meningococcal B Vaccine Aged Out No l onger eligible based on patient's age to complete this topic RSV Immunization Patients Under 20 months Aged Out No longer eligible b ased on patient's age to complete this topic Varicella Vaccines Aged Out No longer eligible based on patient's age to complete this topic Procedures Procedure Name Priority Date/Time Associated Diagnosis Comments OPIATES CONFIRMATION, URINE Routine 06/10/2025 6:30 AM EDT End stage renal disease ([facility]/HCC V24, CMS/HCC V28) DRUG ABUSE SCREEN EXPANDED WITH REFLEX CONFIRMATION, URINE Routine 06/10/2025 6:30 AM EDT End stage renal disease (CMS/HCC V24, CMS/HCC V28) HEPATIC FUNCTION PANEL Routine 04/25/2025 7:25 AM EDT End stage renal disease (CMS/HCC V24, CMS/HCC V28) COMPLETE BLOOD COUNT Routine 04/11/2025 5:30 AM EDT Anemia, unspecified SST - GOLD Routine 04/10/2025 5:35 AM EDT Other long term acute care registered nurse (current) drug therapy CBC WITH AUTO DIFFERENTIAL Routine 04/10/2025 5:35 AM EDT Other usp (current) drug therapy HEPARIN AND LOW MOLECULAR WEIGHT ANTI XA LEVEL Routine 04/10/2025 5:35 AM EDT Other usp (current) drug therapy CBC AND DIFFERENTIAL Routine 04/10/2025 5:35 AM EDT Other usp (current) drug therapy PROTHROMBIN TIME WITH INR Routine 04/09/2025 4:58 AM EDT Hemorrhagic disorder due to extrinsic circulating anticoagulants ([facility] V24) BASIC METABOLIC PANEL Routine 03/15/2025 5:52 AM EDT Anemia, unspecified from Last 3 Months or Most Recently Relevant to Health Maintenance Results * (ABNORMAL) Drug abuse screen expanded with reflex confirmation, urine (06/10/2025 6:30 AM EDT) Amphetamine Screen, Ur Negative Negative LAB CHEMISTRY METHOD 5 9:20 AM EDT [facility] Comment:Certain OTC medicati ons containing ephedrine, phenylephrine, pseudoephedrine and phenylpropanolamine can cause false positive results. Barbiturate Screen, Ur Negative Negative LAB CHEMISTRY METHOD 5 9:20 AM EDT [facility] Benzodiazepine Screen, Ur Negative Negative LAB CHEMISTRY METHOD 5 9:20 AM EDT [facility] Cocaine Screen, Ur Negative Negative LAB CHEMISTRY METHOD 5 9:20 AM EDT [facility] Opiate Screen, Ur Positive(A ) Negative LAB CHEMISTRY METHOD 9:20 AM EDT [facility] Cannabinoid (THC) Screen, Ur Negative Negative LAB CHEMISTRY METHOD 9:20 AM EDT [facility] Comment:Specimens from patie nts taking pantoprazole sodium (Protonix) have been shown to produce false positive results. Fentanyl, Ur Negative Negative LAB CHEMISTRY METHOD 9:20 AM EDT [facility] Oxycodone Screen, Ur Negative Negative LAB CHEMISTRY METHOD 9:20 AM EDT [facility] Urine Urine specimen obtained by clean catch procedure / Unknown Non-blood Collection / Unknown 06/10/2025 6:30 AM EDT 06/11/2025 8:48 AM EDT Narrative [facility] - 06/11/2025 9:20 AM EDT Assay cutoffs: Amphetamines 1000 ng/mL Barbiturates 200 ng/mL Benzodiazepines 200 ng/mL Cocaine 300 ng/mL Fentanyl 1 ng/mL Opiates 300 ng/mL Oxycodone 100 ng/mL THC 50 ng/mL Semi-quantitative assay for screening purposes only. Unconfirmed screening result should not be used for non-medical purposes. *POSITIVE RESULTS ARE AUTOMATICALLY SENT FOR ALTERNATE METHOD CONFIRMATION* Nakul Elizalde MD LAB URINE ORDERABLES Final R esult [facility] [address] [place] [address], * Opiates confirmation, urine (06/10/2025 6:30 AM EDT) Morphine Confirm, Urine 124 ng/mL 06/13/2025 10:50 PM EDT [facility] Codeine Confirm, Urine 2382 ng/mL 06/13/2025 10:50 PM EDT [facility] Hydrocodone Confirm, Urine Negative ng/mL 06/13/2025 10:50 PM EDT [facility] Hydromorphone Confirm, Urine Negative ng/mL 06/13/2025 10:50 PM EDT [facility] Oxycodone Confirm, Urine Negative ng/mL 06/13/2025 10:50 PM EDT [facility] Oxymorphone Confirm, Urine Negative ng/mL 06/13/2025 10:50 PM EDT [facility] Creatinine 25 20 - 250 mg/dL 06/13/2025 10:50 PM EDT [facility] Adulterants Negative 06/13/2025 10:[address] [facility] Comment: Confirmation (LC/MS/MS) Decision Limits Morphine 25 ng/mL Codeine 25 ng/mL Hydrocodone 25 ng/mL Hydromorphone 25 ng/mL Oxycodone 25 ng/mL Oxymorphone 25 ng/mL Adulterant Decision Limit: General Oxidants 200 ug/mL The adulterant assay tests for General Oxidants, including Chromates and Nitrites. Adulterants are substances either ingested or added directly to a urine specimen to prevent the detection of drug use. If applicable, any drug confirmation testing reported here was developed and the performance characteristics determined by [facility]. This confirmation testing has not been cleared or approved by the FDA. The laboratory is regulated under CLIA as qualified to perform high-complexity testing. This test is used for patient testing purposes. It should not be regarded as investigational or for research. Test performed at [facility], [address] , [place], [place] [id number] Rasheeda Lucio MD, PhD - Industrial Maintenance Repairer Helper Urine Urine specimen obtained by clean catch procedure / Unknown Non-blood Collection / Unknown 06/10/2025 6:30 AM EDT 06/11/2025 9:20 AM EDT us Nakul Elizalde MD LAB URINE ORDERABLES Final R esult [facility] [address] [place], [place] [id number] * Hepatic function panel (04/25/2025 7:25 AM EDT) Pathologist [facility] Total Protein 7.9 6.0 - 8.0 g/dL LAB CHEMISTRY METHOD 04/25/2025 10:22 AM EDT [facility] Albumin 3.5 3.2 - 5.0 g/dL LAB CHEMISTRY METHOD 04/25/2025 10:22 AM [facility] Total Bilirubin 0.4 0.0 - 1.4 mg/dL LAB CHEMISTRY METHOD 04/25/2025 10:22 AM [facility] Bilirubin, Direct 0.1 0.0 - 0.3 mg/dL LAB CHEMISTRY METHOD 04/25/2025 10:22 AM [facility] Bilirubin, Indirect 0.3 0.0 - 1.1 mg/dL LAB CHEMISTRY METHOD 04/25/2025 10:22 AM [facility] ALT (SGPT) 15 10 - 60 unit/L LAB CHEMISTRY METHOD 04/25/2025 10:22 AM [facility] AST (SGOT) 12 10 - 42 unit/L LAB CHEMISTRY METHOD 04/25/2025 10:22 AM [facility] Alkaline Phosphatase 108 42 - 121 unit/L LAB CHEMISTRY METHOD 04/25/2025 10:22 AM [facility] Blood Venous blood specimen / Unknown Venipuncture / Unknown 04/25/2025 7:25 AM EDT 04/25/2025 9:05 AM EDT Nakul Elizalde MD LAB BLOOD ORDERABLES Final R esult [facility] [address] [place] [address], * (ABNORMAL) Complete blood count (04/11/2025 5:30 AM EDT) WBC 5.2 4.8 - 10.8 K/mcL LAB HEMETOLOGY METHOD 04/11/2025 9:24 AM [facility] RBC 2.10(L) 4.50 - 5.50 M/mcL LAB HEMETOLOGY METHOD 04/11/2025 9:24 AM [facility] Hemoglobin 6.7(L) 13.5 - 17.5 g/dL LAB HEMETOLOGY METHOD 04/11/2025 9:24 AM [facility] Hematocrit 21.6(L) 42.0 - 54.0 % LAB HEMETOLOGY METHOD 04/11/2025 9:24 AM [facility] MCV 105.4(H) 79.0 - 98.0 FL LAB HEMETOLOGY METHOD 04/11/2025 9:24 AM [facility] MCH 32.7(H) 27.0 - 32.0 pcg LAB HEMETOLOGY METHOD 04/11/2025 9:24 AM [facility] MCHC 31.0(L) 32.0 - 37.0 g/dL LAB HEMETOLOGY METHOD 04/11/2025 9:24 AM [facility] RDW 17.8(H) 11.0 - 15.0 % LAB HEMETOLOGY METHOD 04/11/2025 9:24 AM [facility] Platelets 170 130 - 400 K/mcL LAB HEMETOLOGY METHOD 04/11/2025 9:24 AM [facility] MPV 10.3 7.0 - 11.0 FL LAB HEMETOLOGY METHOD 04/11/2025 9:24 AM [facility] NRBC 0.0 <1.0 % LAB HEMETOLOGY METHOD 04/11/2025 9:24 AM [facility] NRBC Absolute 0.00 <0.10 K/mcL LAB HEMETOLOGY METHOD 04/11/2025 9:24 AM [facility] Blood Venous blood specimen / Unknown Venipuncture / Unknown 04/11/2025 5:30 AM EDT 04/11/2025 9:09 AM EDT Nakul Elizalde MD LAB BLOOD ORDERABLES Final R esult [facility] [address] [place] [address], [place] [phone] * SST tube (04/10/2025 5:35 AM EDT) [facility] Extra Tube Hold for add-ons. 04/10/2025 12:01 PM EDT [facility] Comment:Auto resulted. Blood Venous blood specimen / Unknown 04/10/2025 5:35 AM EDT 04/10/2025 10:49 AM EDT Nakul Elizalde MD LAB BLOOD ORDERABLES Final R esult Performing Organization Address [facility]/ZIP Co de Phone Number [facility] [address] [place] [address], [place] [phone] * (ABNORMAL) CBC auto differential (04/10/2025 5:35 AM EDT) [facility] WBC 4.6(L) 4.8 - 10.8 K/[facility] LAB HEMETOLOGY METHOD 04/10/2025 11:25 AM EDT [facility] RBC 2.00(L) 4.50 - 5.50 M/[facility] LAB HEMETOLOGY METHOD 04/10/2025 11:25 AM EDT [facility] Hemoglobin 6.5(L) 13.5 - 17.5 g/dL LAB HEMETOLOGY METHOD 04/10/2025 11:25 AM EDT [facility] Hematocrit 21.0(L) 42.0 - 54.0 % LAB HEMETOLOGY METHOD 04/10/2025 11:25 AM EDT [facility] MCV 105.0(H) 79.0 - 98.0 FL LAB HEMETOLOGY METHOD 04/10/2025 11:25 AM EDT [facility] MCH 32.5(H) 27.0 - 32.0 pcg LAB HEMETOLOGY METHOD 04/10/2025 11:25 AM [facility] MCHC 31.0(L) 32.0 - 37.0 g/dL LAB HEMETOLOGY METHOD 04/10/2025 11:25 AM [facility] RDW 18.0(H) 11.0 - 15.0 % LAB HEMETOLOGY METHOD 04/10/2025 11:25 AM [facility] Platelets 161 130 - 400 K/mcL LAB HEMETOLOGY METHOD 04/10/2025 11:25 AM [facility] MPV 10.5 7.0 - 11.0 FL LAB HEMETOLOGY METHOD 04/10/2025 11:25 AM [facility] NRBC 0.0 <1.0 % LAB HEMETOLOGY METHOD 04/10/2025 11:25 AM [facility] NRBC Absolute 0.00 <0.10 K/mcL LAB HEMETOLOGY METHOD 04/10/2025 11:25 AM [facility] Neutrophils Relative 69.3 % LAB HEMETOLOGY METHOD 04/10/2025 11:25 AM [facility] Lymphocytes Relative 14.7 % LAB HEMETOLOGY METHOD 04/10/2025 11:25 AM [facility] Monocytes Relative 10.5 % LAB HEMETOLOGY METHOD 04/10/2025 11:25 AM [facility] Eosinophils Relative 4.4 % LAB HEMETOLOGY METHOD 04/10/2025 11:25 AM [facility] Basophils Relative 0.7 % LAB HEMETOLOGY METHOD 04/10/2025 11:25 AM [facility] Immature Granulocytes Relative 0.4 % LAB HEMETOLOGY METHOD 04/10/2025 11:25 AM EDT [facility] Neutrophils Absolute 3.16 1.50 - 7.00 K/mcL LAB HEMETOLOGY METHOD 04/10/2025 11:25 AM EDT [facility] Lymphocytes Absolute 0.67(L) 1.00 - 5.00 K/mcL LAB HEMETOLOGY METHOD 04/10/2025 11:25 AM EDT [facility] Monocytes Absolute 0.48 0.20 - 1.00 K/mcL LAB HEMETOLOGY METHOD 04/10/2025 11:25 AM EDT [facility] Eosinophils Absolute 0.20 0.00 - 0.50 K/mcL LAB HEMETOLOGY METHOD 04/10/2025 11:25 AM EDT [facility] Basophils Absolute 0.03 0.00 - 0.20 K/mcL LAB HEMETOLOGY METHOD 04/10/2025 11:25 AM EDT [facility] Immature Granulocytes Absolute 0.02 0.00 - 0.03 K/mcL LAB HEMETOLOGY METHOD 04/10/2025 11:25 AM EDT [facility] Blood Venous blood specimen / Unknown Venipuncture / Unknown 04/10/2025 5:35 AM EDT 04/10/2025 10:18 AM EDT us Nakul Elizalde MD LAB BLOOD ORDERABLES Final R esult [facility] [address] [place] [address], * (ABNORMAL) Heparin and low molecular weight anti Xa level (04/10/2025 5:35 AM EDT) Heparin Anti-Xa 0.14(L) 0.30 - 0.70 I Unit/mL LAB COAGULATION METHOD 04/10/2025 11:08 AM EDT [facility] Blood Venous blood specimen / Unknown Venipuncture / Unknown 04/10/2025 5:35 AM EDT 04/10/2025 10:18 AM EDT Narrative [facility] - 04/10/2025 11:08 AM EDT Therapeutic range listed is for Unfractionated Heparin. LMW Heparin therapeutic range: 0.50-1.20 IU/mL Nakul Elizalde MD LAB BLOOD ORDERABLES Final R esult Performing Organization Address City/[facility]/ZIP Co de Phone Number [facility] [address] [place] [address], [place] [phone] * Prothrombin time with INR (04/09/2025 4:58 AM EDT) Protime 13.8 10.6 - 13.9 sec LAB COAGULATION METHOD 04/09/2025 8:17 AM EDT [facility] INR 1.1 LAB COAGULATION METHOD 04/09/2025 8:17 AM EDT [facility] Blood Venous blood specimen / Unknown Venipuncture / Unknown 04/09/2025 4:58 AM EDT 04/09/2025 7:53 AM EDT Nakul Elizalde MD LAB BLOOD ORDERABLES Final R esult Performing Organization Address [facility] Co de Phone Number [facility] [address] [place] [address], [place] [phone] * (ABNORMAL) Basic metabolic panel (03/15/2025 5:52 AM EDT) Sodium 134 133 - 145 mmol/L LAB CHEMISTRY METHOD 03/15/2025 10:02 AM EDT [facility] Potassium 5.2 3.5 - 5.5 mmol/L LAB CHEMISTRY METHOD 03/15/2025 10:02 AM EDT [facility] Chloride 95(L) 96 - 110 mmol/L LAB CHEMISTRY METHOD 03/15/2025 10:02 AM EDT [facility] CO2 27 21 - 32 mmol/L LAB CHEMISTRY METHOD 03/15/2025 10:02 AM [facility] Anion Gap 12(H) 3 - 11 LAB CHEMISTRY METHOD 03/15/2025 10:02 AM [facility] Glucose 80 70 - 100 mg/dL LAB CHEMISTRY METHOD 03/15/2025 10:02 AM [facility] BUN 72(H) 5 - 25 mg/dL LAB CHEMISTRY METHOD 03/15/2025 10:02 AM [facility] Creatinine 7.24(H) 0.70 - 1.30 mg/dL LAB CHEMISTRY METHOD 03/15/2025 10:02 AM [facility] eGFR 7(L) >=60 mL/min/1. 73m2 LAB CHEMISTRY METHOD 03/15/2025 10:02 AM [facility] Comment:Calculation based on the Chronic Kidney Disease Epidemiology Collaboration (CKD-EPI) equation refit without adjustment for race. BUN/Creatinine Ratio 9.9 LAB CHEMISTRY METHOD 03/15/2025 10:02 AM [facility] Calcium 9.4 8.5 - 10.5 mg/dL LAB CHEMISTRY METHOD 03/15/2025 10:02 AM [facility] Blood Venous blood specimen / Unknown Venipuncture / Unknown 03/15/2025 5:52 AM EDT 03/15/2025 9:03 AM EDT us Nakul Elizalde MD LAB BLOOD ORDERABLES Final R esult [facility] [address] [place] [address], from Last 3 Months or Most Recently Relevant to Health Maintenance Insurance MEDICAID - [place] Care Teams Philosophy Specialist Relationship Specialty Start Date End Date Nakul Elizalde MD [address] [place] [address] PCP - General Family Medicine 01/30/25
--- OUTSIDE RECORDS SUMMARY | 2025-07-08 18:54 | XMS_ITS | Encounter Summary ---
Author Organization [employer] Address [address] [place] [address] Care Team Providers Care Foundry Engineer Name Role Phone Nakul Elizalde MD Primary Care Provider [phone] Encounter Details Date Type Department Care Team (Late st Contact Info) Description 04/11/2025 Lab Requisition [facility] [address] [facility] [place] [address] Nakul Elizalde MD [address] [place] [address] Anemia, unspecified Social History Tobacco Use Types Packs/Day [...] Procedure Name Priority Date/Time Associated Diagnosis Comments COMPLETE BLOOD COUNT Routine 04/11/2025 5:30 AM EDT Anemia, unspecified documented in this encounter Results * (ABNORMAL) Complete blood count (04/11/2025 5:30 AM EDT) WBC 5.2 4.8 - 10.8 K/[facility] LAB HEMETOLOGY METHOD 04/11/2025 9:24 AM EDT [facility] RBC 2.10(L) 4.50 - 5.50 M/[facility] LAB HEMETOLOGY METHOD 04/11/2025 9:24 AM EDT [facility] Hemoglobin 6.7(L) 13.5 - 17.5 g/dL LAB HEMETOLOGY METHOD 04/11/2025 9:24 AM EDT [facility] Hematocrit 21.6(L) 42.0 - 54.0 % LAB HEMETOLOGY METHOD 04/11/2025 9:24 AM EDT [facility] MCV 105.4(H) 79.0 - 98.0 FL LAB HEMETOLOGY METHOD 04/11/2025 9:24 AM EDT [facility] MCH 32.7(H) 27.0 - 32.0 pcg LAB HEMETOLOGY METHOD 04/11/2025 9:24 AM EDT [facility] MCHC 31.0(L) 32.0 - 37.0 g/dL LAB HEMETOLOGY METHOD 04/11/2025 9:24 AM EDT [facility] RDW 17.8(H) 11.0 - 15.0 % LAB HEMETOLOGY METHOD 04/11/2025 9:24 AM EDT [facility] Platelets 170 130 - 400 K/mcL LAB HEMETOLOGY METHOD 04/11/2025 9:24 AM EDT [facility] MPV 10.3 7.0 - 11.0 FL LAB HEMETOLOGY METHOD 04/11/2025 9:24 AM EDT [facility] NRBC 0.0 <1.0 % LAB HEMETOLOGY METHOD 04/11/2025 9:24 AM EDT [facility] NRBC Absolute 0.00 <0.10 K/mcL LAB HEMETOLOGY METHOD 04/11/2025 9:24 AM T [facility] Blood Venous blood specimen / Unknown Venipuncture / Unknown 04/11/2025 5:30 AM EDT 04/11/2025 9:09 AM EDT Nakul Elizalde MD LAB BLOOD ORDERABLES Final R esult [facility] [address] [place] [address], documented in this encounter Visit Diagnoses Diagnosis Anemia, unspecified documented in this encounter Care Teams Foundry Engineer Relationship Specialty Start Date End Date Nakul Elizalde MD [address] [place] [address] PCP - General Family Medicine 01/30/25 documented as of this encounter
--- OUTSIDE RECORDS SUMMARY | 2025-07-08 18:54 | XMS_ITS | Encounter Summary ---
Author Organization [employer] Address [address] [place] [address] Care Team Providers Care Review Coordinator Name Role Phone Nakul Elizalde MD Primary Care Provider [phone]- [phone] Encounter Details Date Type Department Care Team (Late st Contact Info) Description 03/15/2025 Lab Requisition [facility] - Main Lab 299 [facility] [employer] [place] [address] Nakul Elizalde MD [address] [place] [address] Anemia, unspecified Social History Tobacco Use Types [...] Associated Diagnosis Comments COMPLETE BLOOD COUNT Routine 03/15/2025 5:52 AM EDT Anemia, unspecified BASIC METABOLIC PANEL Routine 03/15/2025 5:52 AM EDT Anemia, unspecified documented in this encounter Results * (ABNORMAL) Basic metabolic panel (03/15/2025 5:52 AM EDT) Sodium 134 133 - 145 mmol/L LAB CHEMISTRY METHOD 03/15/2025 10:02 AM [facility] Potassium 5.2 3.5 - 5.5 mmol/L LAB CHEMISTRY METHOD 03/15/2025 10:02 AM [facility] Chloride 95(L) 96 - 110 mmol/L LAB CHEMISTRY METHOD 03/15/2025 10:02 AM [facility] CO2 27 21 - 32 mmol/L LAB CHEMISTRY METHOD 03/15/2025 10:02 AM [facility] Anion Gap 12(H) 3 - 11 LAB CHEMISTRY METHOD 03/15/2025 10:02 AM [facility] Glucose 80 70 - 100 mg/dL LAB CHEMISTRY METHOD 03/15/2025 10:02 AM [facility] BUN 72(H) 5 - 25 mg/dL LAB CHEMISTRY METHOD 03/15/2025 10:02 AM [facility] Creatinine 7.24(H) 0.70 - 1.30 mg/dL LAB CHEMISTRY METHOD 03/15/2025 10:02 AM [facility] eGFR 7(L) >=60 mL/min/1. 73m2 LAB CHEMISTRY METHOD 03/15/2025 10:02 AM [facility] Comment:Calculation based on the Chronic Kidney Disease Epidemiology Collaboration (CKD-EPI) equation refit without adjustment for race. BUN/Creatinine Ratio 9.9 LAB CHEMISTRY METHOD 03/15/2025 10:02 AM [facility] Calcium 9.4 8.5 - 10.5 mg/dL LAB CHEMISTRY METHOD 03/15/2025 10:02 AM [facility] Blood Venous blood specimen / Unknown Venipuncture / Unknown 03/15/2025 5:52 AM EDT 03/15/2025 9:03 AM EDT us Nakul Elizalde MD LAB BLOOD ORDERABLES Final R esult [facility] [address] [place] [address], * (ABNORMAL) Complete blood count (03/15/2025 5:52 AM EDT) WBC 5.3 4.8 - 10.8 K/mcL LAB HEMETOLOGY METHOD 03/15/2025 9:45 AM [facility] RBC 2.40(L) 4.50 - 5.50 M/mcL LAB HEMETOLOGY METHOD 03/15/2025 9:45 AM [facility] Hemoglobin 7.4(L) 13.5 - 17.5 g/dL LAB HEMETOLOGY METHOD 03/15/2025 9:45 AM [facility] Hematocrit 23.6(L) 42.0 - 54.0 % LAB HEMETOLOGY METHOD 03/15/2025 9:45 AM [facility] MCV 98.3(H) 79.0 - 98.0 FL LAB HEMETOLOGY METHOD 03/15/2025 9:45 AM [facility] MCH 30.8 27.0 - 32.0 pcg LAB HEMETOLOGY METHOD 03/15/2025 9:45 AM [facility] MCHC 31.4(L) 32.0 - 37.0 g/dL LAB HEMETOLOGY METHOD 03/15/2025 9:45 AM [facility] RDW 15.7(H) 11.0 - 15.0 % LAB HEMETOLOGY METHOD 03/15/2025 9:45 AM [facility] Platelets 132 130 - 400 K/mcL LAB HEMETOLOGY METHOD 03/15/2025 9:45 AM [facility] MPV 10.7 7.0 - 11.0 FL LAB HEMETOLOGY METHOD 03/15/2025 9:45 AM [facility] NRBC 0.0 <1.0 % LAB HEMETOLOGY METHOD 03/15/2025 9:45 AM [facility] NRBC Absolute 0.00 <0.10 K/mcL LAB HEMETOLOGY METHOD 03/15/2025 9:45 AM [facility] Blood Venous blood specimen / Unknown Venipuncture / Unknown 03/15/2025 5:52 AM EDT 03/15/2025 9:03 AM EDT us Nakul Elizalde MD LAB BLOOD ORDERABLES Final R esult [facility] [address] [place] [address], documented in this encounter Visit Diagnoses Diagnosis Anemia, unspecified documented in this encounter Care Teams Review Coordinator Relationship Specialty Start Date End Date Nakul Elizalde MD [address] [place] [address] PCP - General Family Medicine 01/30/25 documented as of this encounter
--- OUTSIDE RECORDS SUMMARY | 2025-07-08 18:54 | XMS_ITS | Encounter Summary ---
Author Organization [employer] Address [address] [place] [address] Care Team Providers Care Electric Blanket Wirer Name Role Phone Nakul Elizalde MD Primary Care Provider [phone] Encounter Details Date Type Department Care Team (Late st Contact Info) Description 04/25/2025 Lab Requisition [facility] - Main Lab 299 [facility] [place] [address] Nakul Elizalde MD [address] [place] [address] End stage renal disease (CMS/HCC V24, CMS/HCC V28) Social History Tobacco Use Types Packs/Day Years [...] Procedure Name Priority Date/Time Associated Diagnosis Comments HEPATIC FUNCTION PANEL Routine 04/25/2025 7:25 AM EDT End stage renal disease (CMS/HCC V24, CMS/HCC V28) documented in this encounter Results * Hepatic function panel (04/25/2025 7:25 AM EDT) Total Protein 7.9 6.0 - 8.0 g/dL LAB CHEMISTRY METHOD 04/25/2025 10:22 AM EDT [facility] Albumin 3.5 3.2 - 5.0 g/dL LAB CHEMISTRY METHOD 04/25/2025 10:22 AM [facility] Total Bilirubin 0.4 0.0 - 1.4 mg/dL LAB CHEMISTRY METHOD 04/25/2025 10:22 AM T [facility] Bilirubin, Direct 0.1 0.0 - 0.3 mg/dL LAB CHEMISTRY METHOD 04/25/2025 10:22 AM EDT [facility] Bilirubin, Indirect 0.3 0.0 - 1.1 mg/dL LAB CHEMISTRY METHOD 04/25/2025 10:22 AM EDT [facility] ALT (SGPT) 15 10 - 60 unit/L LAB CHEMISTRY METHOD 04/25/2025 10:22 AM EDT [facility] AST (SGOT) 12 10 - 42 unit/L LAB CHEMISTRY METHOD 04/25/2025 10:22 AM EDT [facility] Alkaline Phosphatase 108 42 - 121 unit/L LAB CHEMISTRY METHOD 04/25/2025 10:22 AM T [facility] Blood Venous blood specimen / Unknown Venipuncture / Unknown 04/25/2025 7:25 AM EDT 04/25/2025 9:05 AM EDT us Nakul Elizalde MD LAB BLOOD ORDERABLES Final R esult [facility] [address] [place] [address], documented in this encounter Visit Diagnoses Diagnosis End stage renal disease (CMS/HCC V24, CMS/HCC V28) End stage renal disease documented in this encounter Care Teams Electric Blanket Wirer Relationship Specialty Start Date End Date Nakul Elizalde MD [address] [place] [address] PCP - General Family Medicine 01/30/25 documented as of this encounter
--- OUTSIDE RECORDS SUMMARY | 2025-07-08 18:54 | XMS_ITS | Encounter Summary ---
Author Organization [facility], Address [address] [place] [address] Phone Care Team Providers Care Registered Nurse Bone Marrow Transplant Name Role Phone Unavailable Primary Care Provider Unavailabl e Encounter Details Date Type Department Care Team (Late st Contact Info) Description 07/03/2025 Orders Only [facility] [address] [place] [address] Jair Crowley MD [address] [place] [id number] Social History Tobacco Use Types Packs/Day Years [...] Procedure Name Priority Date/Time Associated Diagnosis Comments HD KINETICS Routine 07/03/2025 POST CHEMISTRY Routine 07/03/2025 IMMUNO CHEMISTRY Routine 07/03/2025 HEMATOLOGY Routine 07/03/2025 CHEMISTRY Routine 07/03/2025 CHEMISTRY Routine 07/03/2025 documented in this encounter Results * HD KINETICS (07/03/2025) % Urea Reduction 79 65 - 80 % [facility] 07/03/2025 07/04/2025 3:3 3 PM EDT Narrative [facility] - 07/05/2025 Unless otherwise specified, test(s) performed at: [facility], [address] [place] [address] LECTURER IN COMPUTER SCIENCE: Hermelindo Fuller M.D. For any questions, please call customer service at FREQUENCY:MONTHLY Resulting Agency Comment Specimen source: Plasma Jair Crowley MD LAB BLOOD ORDERABLES Final Re sult Performing Organization Address [facility] de Phone Number [facility] See order comments or contact performing lab Unknown, [place] * POST CHEMISTRY (07/03/2025) BUN Post Dialysis 9 6 - 19 mg/dL [facility] 07/03/2025 07/04/2025 3:3 3 PM EDT Narrative [facility] - 07/04/2025 Unless otherwise specified, test(s) performed at: [facility], [address] [place] [address] LECTURER IN [employer]ER [employer]ENCE: Hermelindo Fuller M.D. For any questions, please call customer service at FREQUENCY:MONTHLY Resulting Agency Comment Specimen source: Plasma Jair Crowley MD LAB BLOOD ORDERABLES Final Re sult Performing Organization Address [facility] de Phone Number [employer] [facility] [employer] See order comments or contact performing lab Unknown, [place] * IMMUNO CHEMISTRY (07/03/2025) Hep B Surface Ag Negative Negative [facility] 07/03/2025 07/04/2025 4:1 9 PM EDT Narrative Resulting Agency Comment Specimen source: Serum Jair Crowley MD LAB BLOOD ORDERABLES Final Re sult Performing Organization Address [facility] de Phone Number [facility] See order comments or contact performing lab Unknown, [place] * (ABNORMAL) [facility] (07/03/2025) Ferritin 991(H) 22 - 322 ng/mL [facility] BUN 43(H) 6 - 19 mg/dL [facility] Creatinine 8.83(H) 0.60 - 1.30 mg/dL [facility] BUN/Creatinine Ratio 4.9(L) 10.0 - 20.0 [facility] Sodium 143 136 - 145 mEq/L [facility] Potassium 5.2(H) 3.5 - 5.1 mEq/L [facility] Chloride 100 96 - 108 mEq/L [facility] Bicarbonate (CO2) 24 22 - 29 mEq/L [facility] Calcium 8.4 8.4 - 10.2 mg/dL [facility] Corrected Calcium 8.6 8.4 - 10.2 mg/dL [facility] Comment: Corrected Calcium is not equivalent to measured Ionized Calcium. Phosphorus 6.0(H) 2.6 - 4.5 mg/dL [facility] Calcium Phosphorus Product 50 0 - 54 [facility] Calcium Phosporus Product, Cor 52 0 - 54 [facility] ALT (SGPT) 10 7 - 52 U/L [facility] Albumin 3.8 3.5 - 5.2 g/dL [facility] Magnesium 1.6 1.6 - 2.6 mg/dL [facility] Comment: Custom Exception Iron 32(L) 45 - 160 mcg/dL [facility] UIBC 126(L) 155 - 355 mcg/dL [facility] TIBC 158(L) 185 - 515 mcg/dL [facility] Iron Saturation (TSat) 20 20 - 55 % [facility] 07/03/2025 07/04/2025 4:1 9 PM EDT Narrative [facility] - 07/05/2025 Unless otherwise specified, test(s) performed at: [facility], [address] [place] [address] LECTURER IN COMPUTER SCIENCE: Hermelindo Fuller M.D. For any questions, please call customer service at FREQUENCY:MONTHLY Resulting Agency Comment Specimen source: Serum us Jair Crowley MD LAB BLOOD ORDERABLES Edited R esult - [facility] See order comments or contact performing lab Unknown, [place] * (ABNORMAL) [facility] Chemistry (07/03/2025) PTH 1,309(H) 16 - 80 pg/mL [facility] 07/03/2025 07/04/2025 9:4 7 AM EDT Narrative [facility] - 07/04/2025 Unless otherwise specified, test(s) performed at: [facility], [address] [place] [address] LECTURER IN COMPUTER SCIENCE: Hermelindo Fuller M.D. For any questions, please call customer service at FREQUENCY:MONTHLY Resulting Agency Comment Specimen source: Plasma Jair Crowley MD LAB BLOOD ORDERABLES Final Re sult Performing Organization Address [facility]/ZIP Co de Phone Number [employer] [facility] [employer] See order comments or contact performing lab Unknown, [place] * (ABNORMAL) HEMATOLOGY (07/03/2025) Hemoglobin 10.7(L) 14.0 - 18.0 g/dL [facility] Hemoglobin x 3 32.1(L) 42.0 - 54.0 % [facility] 07/03/2025 07/04/2025 10: 07 AM EDT Narrative [facility] - 07/04/2025 Unless otherwise specified, test(s) performed at: [facility], [address] [place] [address] LECTURER IN COMPUTER SCIENCE: Hermelindo Fuller M.D. For any questions, please call customer service at FREQUENCY:MONTHLY Resulting Agency Comment Specimen source: Blood Jair Crowley MD LAB BLOOD ORDERABLES Final Re sult Performing Organization Address City/[facility]/ZIP Co de Phone Number [employer] [facility] [employer] See order comments or contact performing lab Unknown, [place] documented in this encounter Visit Diagnoses Not on filedocumented in this encounter
--- OUTSIDE RECORDS SUMMARY | 2025-07-08 18:54 | XMS_ITS | Encounter Summary ---
Author Organization [employer] Address [address] [place] [address] Care Team Providers Care Instructional Design Specialist Name Role Phone Nakul Elizalde MD Primary Care Provider Encounter Details Date Type Department Care Team (Late st Contact Info) Description 02/04/2025 Lab Requisition [facility] - Main Lab [address] [facility] [place] [address] Nakul Elizalde MD [address] [place] [address] Other throat cutter (current) drug therapy Social History Tobacco Use Types Packs/Day Years Used Date Smoking Tobacco: Never Assessed Sex and Gender Information Value Date Recorded Sex Assigned at Not on file Legal Sex Male 12:21 PM EDT Gender Identity Not on file Sexual Orientation Not on file documented as of this encounter Plan of Treatment Scheduled Orders Name Type Priority Associated Diagnoses Orde r Schedule Drug screen, general toxicology, blood Lab Routine Other throat cutter (current) drug therapy Ordered: 02/04/2025 documented as of this encounter Visit Diagnoses Diagnosis Other throat cutter (current) drug therapy documented in this encounter Care Teams Instructional Design Specialist Relationship Specialty Start Date End Date Nakul Elizalde MD [address] [place] [id number] PCP - General Family Medicine 01/30/25 documented as of this encounter
--- OUTSIDE RECORDS SUMMARY | 2025-07-08 18:54 | XMS_ITS | Encounter Summary ---
Author Organization [employer] Address [address] [place] [address] Care Team Providers Care Assistant Finance Manager Name Role Phone Nakul Elizalde MD Primary Care Provider [phone] Encounter Details Date Type Department Care Team (Late st Contact Info) Description 02/28/2025 Lab Requisition [facility] - Main Lab 299 [facility] [place] [address] Nakul Elizalde MD [address] [place] [address] Other extermination inspector (current) drug therapy Social History Tobacco Use [...] Procedure Name Priority Date/Time Associated Diagnosis Comments RED - PLAIN Routine 02/28/2025 5:10 AM EDT Other intermediate (current) drug therapy DRUG ABUSE SCREEN, SERUM Routine 02/28/2025 5:10 AM EDT Other extermination inspector (current) drug therapy documented in this encounter Results * Red tube (02/28/2025 5:10 AM EDT) Extra Tube Hold for add-ons. 02/28/2025 11:02 AM EDT [facility] Comment:Auto resulted. Blood Venous blood specimen / Unknown Venipuncture / Unknown 02/28/2025 5:10 AM EDT 02/28/2025 9:29 AM EDT Nakul Elizalde MD LAB BLOOD ORDERABLES Final R esult [facility] ([facility] [address] [place] [address], * Drug abuse screen, serum (02/28/2025 5:10 AM EDT) Amphetamine, Serum, Qualitative Negative 03/02/2025 11:04 AM EDT [facility] Barbiturate, Serum, Qualitative Negative 03/02/2025 11:04 AM EDT [facility] Benzodiazepine, Serum, Qualitative Negative 03/02/2025 11:04 AM EDT [facility] Cocaine, Serum, Qualitative Negative 03/02/2025 11:04 AM EDT [facility] Methadone, Serum, Qualitative Negative 03/02/2025 11:04 AM EDT [facility] Opiate, Serum, Qualitative Positive 03/02/2025 11:04 AM EDT [facility] Phencyclidine, Serum, Qualitative Negative 03/02/2025 11:04 AM EDT [facility] Propoxyphene, Serum, Qualitative Negative 03/02/2025 11:04 AM EDT [facility] THC, Serum, Qualitative Negative 03/02/2025 11:04 AM EDT [facility] Alcohol (Ethanol) Level Negative 03/02/2025 11:04 AM EDT [facility] Comment: Screen Decision Limits Drug Analyzed Screen Units ------ ----- Amphetamine 500 ng/mL Barbiturate 150 ng/mL Benzodiazepines 100 ng/mL Cocaine 150 ng/mL Ethanol 10 mg/dL Toxic Blood Ethanol >300 mg/dL Methadone 150 ng/mL Opiates 150 ng/mL Phencyclidine 12 ng/mL Propoxyphene 150 ng/mL THC (Cannabis) 50 ng/mL A positive immunoassay result on a serum drug screen is considered presumptive evidence for the presence of the drug or its metabolite. Since some immunoassay tests detect only inactive metabolites and others are sensitive to very low drug levels, positive results may not correlate with the patient's physiological state. For confirmation of positive immunoassay results by an alternate method or for consultation, please contact the laboratory. If applicable, any drug confirmation testing reported here was developed and the performance characteristics determined by [facility]. This confirmation testing has not been cleared or approved by the FDA. The laboratory is regulated under CLIA as qualified to perform high-complexity testing. This test is used for patient testing purposes. It should not be regarded as investigational or for research. Test performed at [facility], [address] , [place] [address] Rasheeda Lucio MD, PhD - Central Office Installer Blood Venous blood specimen / Unknown Venipuncture / Unknown 02/28/2025 5:10 AM EDT 02/28/2025 9:29 AM EDT us Nakul Elizalde MD LAB BLOOD ORDERABLES Final R esult [facility] [address] [place] [address] documented in this encounter Visit Diagnoses Diagnosis Other extermination inspector (current) drug therapy documented in this encounter Care Teams Assistant Finance Manager Relationship Specialty Start Date End Date Nakul Elizalde MD [address] [place] [address] PCP - General Family Medicine 01/30/25 documented as of this encounter
--- OUTSIDE RECORDS SUMMARY | 2025-07-08 18:54 | XMS_ITS | Encounter Summary ---
Author Organization [employer] Address [address] [place] [address] Care Team Providers Care Marine Drafter Name Role Phone Nakul Elizalde MD Primary Care Provider [phone] Encounter Details Date Type Department Care Team (Late st Contact Info) Description 06/11/2025 Lab Requisition [facility] - Main Lab [address] [facility] [place] [address] Nakul Elizalde MD [address] [place] [address] End stage renal disease (CMS/HCC V24, CMS/[facility] V28) Social History Tobacco Use Types Packs/Day [...] 6:30 AM EDT End stage renal disease ([facility]/HCC V24, CMS/[facility] V28) OPIATES CONFIRMATION, URINE Routine 06/10/2025 6:30 AM EDT End stage renal disease (CMS/HCC V24, CMS/[facility]ER[facility] V28) documented in this encounter Results * Opiates confirmation, urine (06/10/2025 6:30 AM EDT) Morphine Confirm, Urine 124 ng/mL 06/13/2025 10:50 PM EDT [facility] Codeine Confirm, Urine 2382 ng/mL 06/13/2025 10:50 PM EDT [facility] Hydrocodone Confirm, Urine Negative ng/mL 06/13/2025 10:50 PM EDT [facility] Hydromorphone Confirm, Urine Negative ng/mL 06/13/2025 10:50 PM EDT [facility] Oxycodone Confirm, Urine Negative ng/mL 06/13/2025 10:50 PM EDT [facility] Oxymorphone Confirm, Urine Negative ng/mL 06/13/2025 10:50 PM EDT [facility] Creatinine 25 20 - 250 mg/dL 06/13/2025 10:50 PM EDT [facility] Adulterants Negative 06/13/2025 10:50 PM EDT [facility] Comment: Confirmation (LC/MS/MS) Decision Limits Morphine [...] developed and the performance characteristics determined by [facility]. This confirmation testing has not been cleared or approved by the FDA. The laboratory is regulated under CLIA as qualified to perform high-complexity testing. This test is used for patient testing purposes. It should not be regarded as investigational or for research. Test performed at [facility], [address] , [place] [address] Rasheeda Lucio MD, PhD - Audit Spec Urine Urine specimen obtained by clean catch procedure / Unknown Non-blood Collection / Unknown 06/10/2025 6:30 AM EDT 06/11/2025 9:20 AM EDT us Nakul Elizalde MD LAB URINE ORDERABLES Final R esult [facility] [address] [place] [address] * (ABNORMAL) Drug abuse screen expanded with reflex confirmation, urine (06/10/2025 6:30 AM EDT) Amphetamine Screen, Ur Negative Negative LAB CHEMISTRY METHOD 5 9:20 AM [facility] Comment:Certain OTC medicati ons containing ephedrine, phenylephrine, pseudoephedrine and phenylpropanolamine can cause false positive results. Barbiturate Screen, Ur Negative Negative LAB CHEMISTRY METHOD 5 9:20 AM [facility] Benzodiazepine Screen, Ur Negative Negative LAB CHEMISTRY METHOD 5 9:20 AM [facility] Cocaine Screen, Ur Negative Negative LAB CHEMISTRY METHOD 5 9:20 AM [facility] Opiate Screen, Ur Positive(A ) Negative LAB CHEMISTRY METHOD 5 9:20 AM [facility] Cannabinoid (THC) Screen, Ur Negative Negative LAB CHEMISTRY METHOD 9:20 AM [facility] Comment:Specimens from patie nts taking pantoprazole sodium (Protonix) have been shown to produce false positive results. Fentanyl, Ur Negative Negative LAB CHEMISTRY METHOD 5 9:20 AM [facility] Oxycodone Screen, Ur Negative Negative LAB CHEMISTRY METHOD 5 9:20 AM [facility] Urine Urine specimen obtained by clean catch procedure / Unknown Non-blood Collection / Unknown 06/10/2025 6:30 AM EDT 06/11/2025 8:48 AM EDT [facility] - 06/11/2025 9:20 AM EDT Assay [...] MD LAB URINE ORDERABLES Final R esult [facility] H[facility]PITAL LAB [address] [place] [address], documented in this encounter Visit Diagnoses Diagnosis End stage renal disease (CMS/HCC V24, CMS/HCC V28) End stage renal disease documented in this encounter Care Teams Marine Drafter Relationship Specialty Start Date End Date Nakul Elizalde MD [address] [place] [address] PCP - General Family Medicine 01/30/25 documented as of this encounter
--- OUTSIDE RECORDS SUMMARY | 2025-07-08 18:54 | XMS_ITS | Encounter Summary ---
Author Organization [facility], Address [address] [place] [address] Phone Care Team Providers Care Pathology Assistant Name Role Phone Unavailable Primary Care Provider Unavailabl e Encounter Details Date Type Department Care Team (Late st Contact Info) Description 03/21/2025 Orders Only [facility], - [facility] [address] [place] [id number] Allie Montoya [address] [place] [address] Social History Tobacco Use Types Packs/Day [...]
--- OUTSIDE RECORDS SUMMARY | 2025-07-08 18:54 | XMS_ITS | Encounter Summary ---
Author Organization [employer] Address [address] [place] [address] Care Team Providers Care Computer Systems Technology Instructor Name Role Phone Nakul Elizalde MD Primary Care Provider [phone] Encounter Details Date Type Department Care Team (Late st Contact Info) Description 02/01/[address] [facility] - Main Lab [address] [facility] [place] [address] Nakul Elizalde MD [address] [place] [address] Other intermediate school teacher (current) drug therapy Social History Tobacco Use [...] Associated Diagnosis Comments RED - PLAIN Routine 02/01/2025 12:34 PM EDT Other intermediate school teacher (current) drug therapy DRUG ABUSE SCREEN, SERUM Routine 02/01/2025 12:34 PM EDT Other fdc (current) drug therapy documented in this encounter Results * Red tube (02/01/2025 12:34 PM EDT) Extra Tube Hold for add-ons. 02/01/2025 3:[address] [facility] Comment:Auto resulted. Blood Venous blood specimen / Unknown Venipuncture / Unknown 02/01/2025 12:34 PM EDT 02/01/2025 1:56 PM EDT us Nakul Elizalde MD LAB BLOOD ORDERABLES Final R esult [facility] [address] [place] [address], * Drug abuse screen, serum (02/01/2025 12:34 PM EDT) [facility] Amphetamine, Serum, Qualitative Negative 02/04/2025 3:08 PM EDT [facility] Barbiturate, Serum, Qualitative Negative 02/04/2025 3:08 PM EDT [facility] Benzodiazepine, Serum, Qualitative Negative 02/04/2025 3:08 PM EDT [facility] Cocaine, Serum, Qualitative Negative 02/04/2025 3:08 PM EDT [facility] Methadone, Serum, Qualitative Negative 02/04/2025 3:08 PM EDT [facility] Opiate, Serum, Qualitative Positive 02/04/2025 3:08 PM EDT [facility] Phencyclidine, Serum, Qualitative Negative 02/04/2025 3:08 PM EDT [facility] Propoxyphene, Serum, Qualitative Negative 02/04/2025 3:08 PM EDT [facility] THC, Serum, Qualitative Negative 02/04/2025 3:08 PM EDT [facility] Alcohol (Ethanol) Level Negative 02/04/2025 3:08 PM EDT [facility] Comment: Screen Decision Limits [...] investigational or for research. Test performed at [facility], [address] , [place] [address] Rasheeda Lucio MD, PhD - Scallop Raker Blood Venous blood specimen / Unknown Venipuncture / Unknown 02/01/2025 12:34 PM EDT 02/01/2025 1:56 PM EDT us Nakul Elizalde MD LAB BLOOD ORDERABLES Final R esult [facility] [address] [place] [address] documented in this encounter Visit Diagnoses Diagnosis Other intermediate school teacher (current) drug therapy documented in this encounter Care Teams Computer Systems Technology Instructor Relationship Specialty Start Date End Date Nakul Elizalde MD [address] [place] [address] PCP - General Family Medicine 01/30/25 documented as of this encounter
--- OUTSIDE RECORDS SUMMARY | 2025-07-08 18:54 | XMS_ITS | Encounter Summary ---
Author Organization [facility], Address [address] [place] [address] Phone Care Team Providers Care Harvest Worker Name Role Phone Unavailable Primary Care Provider Unavailabl e Encounter Details Date Type Department Care Team (Late st Contact Info) Description 03/21/2025 Orders Only [facility], - [facility] [address] [place] [id number] Allie Montoya [address] [place] [phone] Social History Tobacco Use Types Packs/Day [...]
--- OUTSIDE RECORDS SUMMARY | 2025-07-08 18:54 | XMS_ITS | Encounter Summary ---
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) Social History Tobacco Use Types Packs/Day Years [...] Procedure Name Priority Date/Time Associated Diagnosis Comments PROTHROMBIN TIME WITH INR Routine 04/09/2025 4:58 AM EDT 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) documented in this encounter Results * Prothrombin time with INR (04/09/2025 4:58 AM EDT) Protime 13.8 10.6 - 13.9 sec LAB COAGULATION METHOD 04/09/2025 8:17 AM EDT [facility] INR 1.1 LAB COAGULATION METHOD 04/09/2025 8:17 AM EDT [facility] Blood Venous blood specimen / Unknown Venipuncture / Unknown 04/09/2025 4:58 AM EDT 04/09/2025 7:53 AM EDT us Nakul Elizalde MD LAB BLOOD ORDERABLES Final R esult [facility] [address] [place] [address], documented in this encounter Visit Diagnoses Diagnosis 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
--- OUTSIDE RECORDS SUMMARY | 2025-07-08 18:54 | XMS_ITS | Encounter Summary ---
Author Organization [employer] Address [address] [place] [address] Care Team Providers Care Operations Intelligence Name Role Phone Nakul Elizalde MD Primary Care Provider [phone] Encounter Details Date Type Department Care Team (Late st Contact Info) Description 04/10/2025 Lab Requisition [facility] - Main Lab [address] [facility] [place] [address] Nakul Elizalde MD [address] [place] [address] Other supervisor intermediates (current) drug therapy Social History Tobacco Use [...] Procedure Name Priority Date/Time Associated Diagnosis Comments SST - GOLD Routine 04/10/2025 5:35 AM EDT Other supervisor intermediates (current) drug therapy CBC WITH AUTO DIFFERENTIAL Routine 04/10/2025 5:35 AM EDT Other assisted (current) drug therapy HEPARIN AND LOW MOLECULAR WEIGHT ANTI XA LEVEL Routine 04/10/2025 5:35 AM EDT Other supervisor intermediates (current) drug therapy CBC AND DIFFERENTIAL Routine 04/10/2025 5:35 AM EDT Other assisted (current) drug therapy documented in this encounter Results * SST tube (04/10/2025 5:35 AM EDT) Extra Tube Hold for add-ons. 04/10/2025 12:01 PM EDT [facility] Comment:Auto resulted. Blood Venous blood specimen / Unknown 04/10/2025 5:35 AM EDT 04/10/2025 10:49 AM EDT Nakul Elizalde MD LAB BLOOD ORDERABLES Final R esult [facility] [address] [place] [address], * (ABNORMAL) CBC auto differential (04/10/2025 5:35 AM EDT) WBC 4.6(L) 4.8 - 10.8 K/mcL LAB [facility]EMETOLOGY [facility] RBC 2.00(L) 4.50 - 5.50 M/mcL LAB HEMETOLOGY METHOD 04/10/2025 11:25 AM [facility] Hemoglobin 6.5(L) 13.5 - 17.5 g/dL LAB HEMETOLOGY METHOD 04/10/2025 11:25 AM [facility] Hematocrit 21.0(L) 42.0 - 54.0 % LAB HEMETOLOGY METHOD 04/10/2025 11:25 AM [facility] MCV 105.0(H) 79.0 - 98.0 FL LAB HEMETOLOGY METHOD 04/[facility]2025 [facility] MCH 32.5(H) 27.0 - 32.0 pcg LAB HEMETOLOGY METHOD 04/10/2025 11:25 AM [facility] MCHC 31.0(L) 32.0 - 37.0 g/dL LAB HEMETOLOGY METHOD 04/10/2025 11:25 AM [facility] RDW 18.0(H) 11.0 - 15.0 % LAB HEMETOLOGY METHOD 04/10/2025 11:25 AM [facility] Platelets 161 130 - 400 K/mcL LAB HEMETOLOGY METHOD 04/10/2025 11:25 AM [facility] MPV 10.5 7.0 - 11.0 FL LAB HEMETOLOGY METHOD 04/10/2025 11:25 AM [facility] NRBC 0.0 <1.0 % LAB HEMETOLOGY METHOD 04/10/2025 11:25 AM [facility] NRBC Absolute 0.00 <0.10 K/mcL LAB HEMETOLOGY METHOD 04/10/2025 11:25 AM [facility] Neutrophils Relative 69.3 % LAB HEMETOLOGY METHOD 04/10/2025 11:25 AM [facility] Lymphocytes Relative 14.7 % LAB HEMETOLOGY METHOD 04/10/2025 11:25 AM [facility] Monocytes Relative 10.5 % LAB HEMETOLOGY METHOD 04/10/2025 11:25 AM [facility] Eosinophils Relative 4.4 % LAB HEMETOLOGY METHOD 04/10/2025 11:25 AM [facility] Basophils Relative 0.7 % LAB HEMETOLOGY METHOD 04/10/2025 11:25 AM [facility] Immature Granulocytes Relative 0.4 % LAB HEMETOLOGY METHOD 04/10/2025 11:25 AM [facility] Neutrophils Absolute 3.16 1.50 - 7.00 K/mcL LAB HEMETOLOGY METHOD 04/10/2025 11:25 AM [facility] Lymphocytes Absolute 0.67(L) 1.00 - 5.00 K/mcL LAB HEMETOLOGY METHOD 04/10/2025 11:25 AM [facility] Monocytes Absolute 0.48 0.20 - 1.00 K/mcL LAB HEMETOLOGY METHOD 04/10/2025 11:25 AM EDT [facility] Eosinophils Absolute 0.20 0.00 - 0.50 K/[facility] LAB HEMETOLOGY METHOD 04/10/2025 11:25 AM EDT [facility] Basophils Absolute 0.03 0.00 - 0.20 K/[facility] LAB HEMETOLOGY METHOD 04/10/2025 11:25 AM EDT [facility] Immature Granulocytes Absolute 0.02 0.00 - 0.03 K/[facility] LAB HEMETOLOGY METHOD 04/10/2025 11:25 AM EDT [facility] Blood Venous blood specimen / Unknown Venipuncture / Unknown 04/10/2025 5:35 AM EDT 04/10/2025 10:18 AM EDT Nakul Elizalde MD LAB BLOOD ORDERABLES Final R esult Performing Organization Address City/[facility]/ZIP Co de Phone Number [facility] [address] [place] [address], * (ABNORMAL) Heparin and low molecular weight anti Xa level (04/10/2025 5:35 AM EDT) Heparin Anti-Xa 0.14(L) 0.30 - 0.70 I Unit/mL LAB COAGULATION METHOD 04/10/2025 11:08 AM EDT [facility] Blood Venous blood specimen / Unknown Venipuncture / Unknown 04/10/2025 5:35 AM EDT 04/10/2025 10:18 AM EDT Narrative [facility] - 04/10/2025 11:08 AM EDT Therapeutic range listed is for Unfractionated Heparin. LMW Heparin therapeutic range: 0.50-1.20 IU/mL Nakul Elizalde MD LAB BLOOD ORDERABLES Final R esult [facility] [address] [place] [address], documented in this encounter Visit Diagnoses Diagnosis Other supervisor intermediates (current) drug therapy documented in this encounter Care Teams Operations Intelligence Relationship Specialty Start Date End Date Nakul Elizalde MD [address] [place] [address] PCP - General Family Medicine 01/30/25 documented as of this encounter
--- OUTSIDE RECORDS SUMMARY | 2025-07-08 18:54 | XMS_ITS | Encounter Summary ---
Author Organization [employer] Address [address] [place] [address] Care Team Providers Care Race Board Attendant Name Role Phone Nakul Elizalde MD Primary Care Provider [phone] Encounter Details Date Type Department Care Team (Late st Contact Info) Description 01/30/2025 Lab Requisition [facility] - Main Lab [address] [facility] [place] [address] Nakul Elizalde MD [address] [place] [address] Essential (primary) hypertension; Vitamin D deficiency, unspecified; [...] LAB CHEMISTRY METHOD 01/30/2025 10:43 PM EDT [facility] Blood Venous blood specimen / Unknown Venipuncture / Unknown 01/30/2025 5:38 AM EDT 01/30/2025 12:25 PM EDT us Nakul Elizalde MD LAB BLOOD ORDERABLES Final R esult Performing Organization Address [facility]/ZIP Co de Phone Number [facility] [address] [place] [address], [place] [phone] * (ABNORMAL) Vitamin D 25 hydroxy (01/30/2025 5:38 AM EDT) Pathologist [facility] Vit D, 25-Hydroxy 18.9(L) 30.0 - 80.0 ng/mL LAB CHEMISTRY METHOD 01/30/2025 10:43 PM EDT [facility] Blood Venous blood specimen / Unknown Venipuncture / Unknown 01/30/2025 5:38 AM EDT 01/30/2025 12:25 PM EDT us Nakul Elizalde MD LAB BLOOD ORDERABLES Final R [facility] Performing Organization Address [facility]/ZIP Mo de Phone Number [facility] [address] [place] [address], [place] [phone] * (ABNORMAL) Basic metabolic panel (01/30/2025 5:38 AM EDT) Pathologist [facility] Sodium 133 133 - 145 mmol/L LAB CHEMISTRY METHOD 01/30/2025 10:01 PM EDT [facility] Potassium 5.0 3.5 - 5.5 mmol/L LAB CHEMISTRY METHOD 01/30/2025 10:01 PM EDT [facility] Chloride 96 96 - 110 mmol/L LAB CHEMISTRY METHOD 01/30/2025 10:[facility] CO2 24 21 - 32 mmol/L LAB CHEMISTRY METHOD 01/30/2025 10:01 PM [facility] Anion Gap 13(H) 3 - 11 LAB CHEMISTRY METHOD 01/30/2025 10:01 PM [facility] Glucose 69(L) 70 - 100 mg/dL LAB CHEMISTRY METHOD 01/30/2025 10:01 PM [facility] BUN 68(H) 5 - 25 mg/dL LAB CHEMISTRY METHOD 01/30/2025 10:01 PM [facility] Creatinine 8.52(H) 0.70 - 1.30 mg/dL LAB CHEMISTRY METHOD 01/30/2025 10:01 PM [facility] eGFR 6(L) >=60 mL/min/1. 73m2 LAB CHEMISTRY METHOD 01/30/2025 10:01 PM [facility] Comment:Calculation based on the Chronic Kidney Disease Epidemiology Collaboration (CKD-EPI) equation refit without adjustment for race. BUN/Creatinine Ratio 8.0 LAB CHEMISTRY METHOD 01/30/2025 10:01 PM [facility] Calcium 10.2 8.5 - 10.5 mg/dL LAB CHEMISTRY METHOD 01/30/2025 10:01 PM [facility] Blood Venous blood specimen / Unknown Venipuncture / Unknown 01/30/2025 5:38 AM EDT 01/30/2025 12:25 PM EDT us Nakul Elizalde MD LAB BLOOD ORDERABLES Final R esult [facility] [address] [place] [address], * (ABNORMAL) Complete blood count (01/30/2025 5:38 AM EDT) WBC 5.3 4.8 - 10.8 K/mcL LAB HEMETOLOGY METHOD 01/30/2025 12:47 PM [facility] RBC 4.10(L) 4.50 - 5.50 M/mcL LAB HEMETOLOGY METHOD 01/30/2025 12:47 PM [facility] Hemoglobin 12.8(L) 13.5 - 17.5 g/dL LAB HEMETOLOGY METHOD 01/30/2025 12:47 PM [facility] Hematocrit 41.4(L) 42.0 - 54.0 % LAB HEMETOLOGY METHOD 01/30/2025 12:47 PM [facility] MCV 100.7(H) 79.0 - 98.0 FL LAB HEMETOLOGY METHOD 01/30/2025 12:47 PM [facility] MCH 31.1 27.0 - 32.0 pcg LAB HEMETOLOGY METHOD 01/30/2025 12:47 PM [facility] MCHC 30.9(L) 32.0 - 37.0 g/dL LAB HEMETOLOGY METHOD 01/30/2025 12:47 PM [facility] RDW 15.1(H) 11.0 - 15.0 % LAB HEMETOLOGY METHOD 01/30/2025 12:47 PM [facility] Platelets 162 130 - 400 K/mcL LAB HEMETOLOGY METHOD 01/30/2025 12:47 PM [facility] MPV 10.9 7.0 - 11.0 FL LAB HEMETOLOGY METHOD 01/30/2025 12:47 PM [facility] NRBC 0.0 <1.0 % LAB HEMETOLOGY METHOD 01/30/2025 12:47 PM [facility] NRBC Absolute 0.00 <0.10 K/mcL LAB HEMETOLOGY METHOD 01/30/2025 12:47 PM EDT [facility] Blood Venous blood specimen / Unknown Venipuncture / Unknown 01/30/2025 5:38 AM EDT 01/30/2025 12:25 PM EDT Nakul Elizalde MD LAB BLOOD ORDERABLES Final R esult [facility] [address] [place] [address], documented in this encounter Visit Diagnoses Diagnosis Essential (primary) hypertension Unspecified essential hypertension Vitamin D deficiency, unspecified Hypothyroidism, unspecified documented in this encounter Care Teams Race Board Attendant Relationship Specialty Start Date End Date Nakul Elizalde MD [address] [place] [address] PCP - General Family Medicine 01/30/25 documented as of this encounter
--- OUTSIDE RECORDS SUMMARY | 2025-07-08 18:54 | XMS_ITS | Clinical Summary ---
Author Organization [facility] Facility Address [address] [place] [id number] Care Team Providers Care Corrections Counselor Name Role Phone Unavailable Primary Care Provider Unavailabl e Allergies Active Allergy Reactions Criticality Noted Date Comments Codeine Other (see comments) 03/21/2025 Medications amLODIPine (NORVASC) 10 MG tablet Take 1 tablet by mouth in the morning. 5 Active B Rnszznq-U-Xrbhg Acid (WesCaps) 1 MG capsule Take 1 capsule by mouth 5 Active carvedilol (COREG) 25 MG tablet Take 1 tablet by mouth in the morning and 1 tablet in the evening. 5 Active cinacalcet (SENSIPAR) 60 MG tablet Take 1 tablet by mouth in the morning. 5 Active diphenhydrAMINE (Banophen) 25 MG capsule Take 3 capsules by mouth in the morning and 3 capsules at noon and 3 capsules in the evening. 5 Active Docusate Sodium (DSS) 100 MG capsule Take 1 capsule by mouth in the morning and 1 capsule in the evening. 5 Active isosorbide mononitrate (IMDUR) 120 MG 24 hr tablet Take 1 tablet by mouth 5 Active lactulose (CEPHULAC) 10 g packet Take 20 g by mouth 5 Active lanthanum (FOSRENOL) 1000 MG chewable tablet Chew 1 tablet in the morning and 1 tablet in the evening. 5 Active valsartan (DIOVAN) 160 MG tablet Take 1 tablet by mouth 5 Active Methoxy PEG-Epoetin Beta (MIRCERA IJ) 30 mcg once every 2 weeks 5 03/12/20 26 Active Active Problems Problem Noted Date Diagnosed Date Acute embolism and thrombosi s of unspecified deep veins of unspecified lower extremity 03/15/2025 Chronic viral hepatitis C 02/01/2025 Iron deficiency anemia 02/01/2025 Coagulation defect 01/28/2025 Diarrhea 01/28/2025 End stage renal disease 01/28/2025 Hypertensive chronic kidney disease with stage 5 chronic kidney disease or end stage renal disease 01/28/2025 Other disorder of phosphorus metabolism 01/29/20 Pruritus 01/28/2025 Secondary hyperparathyroidism of renal origin Hyperlipidemia 01/24/2025 Type 2 diabetes mellitus wit h diabetic chronic kidney disease 01/24/2025 Dependence on renal dialysis 01/17/2025 Encounters Date Type Department Care Team Description 07/03/2025 Orders Only [facility] [address] [phone] Jair Crowley MD 06/26/2025 Orders Only [facility] [address] [address] Jair Crowley MD 06/21/2025 Orders Only [facility] [address] [phone] Jair Crowley MD 06/12/2025 Orders Only [facility] [address] [address] Jair Crowley MD 06/05/2025 Orders Only [facility] [address] [address] Jair Crowley MD 05/29/2025 Orders Only [facility] [address] [address] Jair Crowley MD 05/22/2025 Orders Only [facility] [address] [address] Jair Crowley MD 05/15/2025 Orders Only [facility] [address] [address] Jair Crowley MD 05/08/2025 Orders Only [facility] [address] [address] Jair Crowley MD 05/01/2025 Orders Only [facility] [address] [address] Jair Crowley MD 04/24/2025 Orders Only [facility] [address] [address] Jair Crowley MD 04/17/2025 Orders Only [facility] [address] [address] Jair Crowley MD 04/10/2025 Orders Only [facility] [address] [address] Jair Crowley MD from Last 3 Months Social History Tobacco Use Types Packs/Day Years Used Date Smoking Tobacco: Never Assessed Sex and Gender Information Value Date Recorded Sex Assigned at Not on file Legal Sex Male 10:51 AM EDT Gender Identity Not on file Sexual Orientation Not on file Plan of Treatment Health Maintenance Due Date Last Done Comments Pneumococcal Vaccine: 50+ Ye ars (1 of 2 - PCV) 1964 Diabetes: Ophthalmology Exam 02/20/2025 Diabetes: Pedal Pulse Checked 02/20/2025 Diabetes: Sensory Foot Exam 02/20/2025 Diabetes: Visual Foot Exam 02/20/2025 Influenza Vaccine (#1) 2025 Diabetes: Hemoglobin A1C 08/01/2025 05/01/2025 Hepatitis B Vaccine Aged Out No longe r eligible based on patient's age to complete this topic Procedures Procedure Name Priority Date/Time Associated Diagnosis Comments HD KINETICS Routine 07/03/2025 POST CHEMISTRY Routine 07/03/2025 IMMUNO CHEMISTRY Routine 07/03/2025 CHEMISTRY Routine 07/03/2025 CHEMISTRY Routine 07/03/2025 HEMATOLOGY Routine 07/03/2025 HEMATOLOGY Routine 06/26/2025 HEMATOLOGY Routine 06/21/2025 HEMATOLOGY Routine 06/12/2025 HD KINETICS Routine 06/05/2025 POST CHEMISTRY Routine 06/05/2025 IMMUNO CHEMISTRY Routine 06/05/2025 CHEMISTRY Routine 06/05/2025 CHEMISTRY Routine 06/05/2025 HEMATOLOGY Routine 06/05/2025 HEMATOLOGY Routine 05/29/2025 HEMATOLOGY Routine 05/22/2025 HEMATOLOGY Routine 05/15/2025 HEMATOLOGY Routine 05/08/2025 HD KINETICS Routine 05/01/2025 IMMUNO CHEMISTRY Routine 05/01/2025 CHEMISTRY Routine 05/01/2025 SPECIAL CHEMISTRY Routine 05/01/2025 CHEMISTRY Routine 05/01/2025 POST CHEMISTRY Routine 05/01/2025 HEMATOLOGY Routine 05/01/2025 HEMATOLOGY Routine 04/24/2025 HEMATOLOGY Routine 04/17/2025 HEMATOLOGY Routine 04/10/2025 from Last 3 Months Results * HD KINETICS (07/03/2025) Only the most recent of3 resultswithin the time period is included. % Urea Reduction 79 65 - 80 % [facility] 07/03/2025 07/04/2025 3:3 3 PM EDT Narrative [facility] - 07/05/2025 Unless otherwise specified, test(s) performed at: [facility], [address] [place] [id number] SOCIAL MEDIA EXECUTIVE: Hermelindo Fuller M.D. For any questions, please call customer service at FREQUENCY:MONTHLY Resulting Agency Comment Specimen source: Plasma Jair Crowley MD LAB BLOOD ORDERABLES Final Re sult Performing Organization Address [facility]/ZIP Co de Phone Number Room n House See order comments or contact performing lab Unknown, [place] * POST CHEMISTRY (07/03/2025) Only the most recent of3 resultswithin the time period is included. BUN Post Dialysis 9 6 - 19 mg/dL [facility] 07/03/2025 07/04/2025 3:3 3 PM EDT Narrative [facility] Unless otherwise specified, test(s) performed at: [facility], [address] [place] [id number] SOCIAL MEDIA EXECUTIVE: Hermelindo Fuller M.D. For any questions, please call customer service at FREQUENCY:MONTHLY Resulting Agency Comment Specimen source: Plasma Jair Crowley MD LAB BLOOD ORDERABLES Final Re sult Room n House See order comments or contact performing lab Unknown, [place] * IMMUNO CHEMISTRY (07/03/2025) Only the most recent of3 resultswithin the time period is included. Hep B Surface Ag Negative Negative [facility] 07/03/2025 07/04/2025 4:1 9 PM EDT Narrative Resulting Agency Comment Specimen source: Serum Jair Crowley MD LAB BLOOD ORDERABLES Final Re sult [facility] See order comments or contact performing lab Unknown, [place] * (ABNORMAL) HEMATOLOGY (07/03/2025) Only the most recent of13 resultswithin the time period is included. Pathologist [facility] Hemoglobin 10.7(L) 14.0 - 18.0 g/dL [facility] Hemoglobin x 3 32.1(L) 42.0 - 54.0 % [facility] 07/03/2025 07/04/2025 10: 07 AM EDT Narrative [facility] - 07/04/2025 Unless otherwise specified, test(s) performed at: [facility], [address] [place] [address] SOCIAL MEDIA EXECUTIVE: Hermelindo Fuller M.D. For any questions, please call customer service at FREQUENCY:MONTHLY Resulting Agency Comment Specimen source: Blood Jair Crowley MD LAB BLOOD ORDERABLES Final Re sult Performing Organization Address [facility] Co de Phone Number [facility] See order comments or contact performing lab Unknown, [place] * (ABNORMAL) [facility] (07/03/2025) Only the most recent of6 resultswithin the time period is included. Ferritin 991(H) 22 - 322 ng/mL [facility] [...] 07/03/2025 07/04/2025 4:1 9 PM EDT Narrative [facility] Unless otherwise specified, test(s) [place] [place] [phone] SOCIAL MEDIA EXECUTIVE: Hermelindo Fuller M.D. For any questions, please call customer service at FREQUENCY:MONTHLY Resulting Agency Comment Specimen source: Serum Jair Crowley MD LAB BLOOD ORDERABLES Edited R esult - Final Performing Organization Address [facility] de Phone Number Room n House See order comments or contact performing lab Unknown, [place] * (ABNORMAL) SPECIAL CHEMISTRY (05/01/2025) Hemoglobin A1C 4.7(L) 4.8 - 5.9 % [email or web address] 05/01/2025 05/02/2025 10: 24 AM EDT Narrative [facility] - 05[facility]/2025 Unless otherwise specified, test(s) performed at: [facility] [address] SOCIAL MEDIA EXECUTIVE: Hermelindo Fuller M.D. For any questions, please call customer service at FREQUENCY:MONTHLY Resulting Agency Comment Specimen source: Blood Jair Crowley MD LAB BLOOD BANK TEST ORDERABLE S Final Result Performing Organization Address [facility] Co de Phone Number [facility] See order comments or contact performing lab Unknown, [place] from Last 3 Months Insurance Medicaid [place]
--- NOTE | 2025-07-08 19:07 | MHC.EDTECH ---
EKG delayed due to patient refusal. Patient reluctantly agreed after talking wit
[2025-07-08 19:29] VITALS: BP 168/88; PULSE 81; RESP 18; TEMP 37.1; O2SAT 99
[2025-07-08 20:00] VITALS: BMI 22.1
--- NOTE | 2025-07-08 20:43 | PHA.MEDREC ---
Addendum entered by Gurinder Martínez [facility] 07/09/25 11:28: Spoke to patient's nurse Lori at [facility] who said patient usually has the butrans patch applied on sundays but he last got it applied on 07/04/25. Original Note: Pharmacy Consult ? Medication Reconciliation Pharmacy has completed the medication reconciliation. Utilized list from [facility] at [facility] to confirm med list.
--- NOTE | 2025-07-08 22:21 | PM.IMHP ---
History of Present Illness Date of Service: 07/08/25 Attending physician on admission: Niok Parmar Chief Complaint: SOB Patient is a 79-year-old male with a past medical history significant for ESRD on HD MWF (missed yesterday), HLD, HTN and history DVT, who presented to the ED due to shortness of breath, oxygenating at 92% on room air, improved to 94% with 2 L via NC. The patient reports that he missed dialysis yesterday and has been feeling short of breath. He denies any chest pain, fever, chills, nausea or vomiting. He has been around sick people recently and does have a productive cough. He also reports he has a left inguinal hernia that he is trying to get repaired soon but would like this taken care of all use hospitalized. Review of Systems Constitutional: Constitutional: Denies body ache(s), Denies chills, Denies fatigue, Denies fever(s) and Denies headache(s) Eyes: Eyes: Denies change in vision ENT: Denies headache(s) Cardiovascular: Cardiovascular: Denies chest pain, Denies rapid heart rate, Denies leg edema, Denies lightheadedness and Reports dyspnea Respiratory: Respiratory: Reports chest congestion, Reports cough, Reports dyspnea and Denies wheezing Gastrointestinal: Gastrointestinal: Denies abdominal pain, Denies diarrhea, Denies nausea and Denies vomiting Genitourinary: Genitourinary: Denies dysuria and Denies urinary urgency Musculoskeletal: Musculoskeletal: Denies myalgias Integumentary/Breasts: Skin/Breast: Denies rash Neurologic: Denies confusion and Denies headache(s) Psychiatric: Psychiatric: Denies confusion Endocrine: Endocrine: Denies fatigue Hematologic/Lymphatic: Hematologic/Lymphatic: Denies easy bleeding and Denies easy bruising Allergic/Immunologic: Allergic/Immunologic: Denies wheezing PMFSH Medical History ESRD (end stage renal disease) HLD (hyperlipidemia) HTN (hypertension) DVT (deep venous thrombosis) Social History Housing: [facility] Other:: [facility] Patient Tobacco Use Status: Never used Tobacco Smoked in Last 30 Days: No Use of substances other than those prescribed or required for medical reasons: No Have you been hit, kicked, punched, or otherwise hurt by someone within the past year? If so, by whom?: No Do you feel safe in your current relationship?: No Current Relationship Is there a partner from a previous relationship who is making you feel unsafe now?: No Are you made to feel afraid or neglected: No Advance Directives: No Advance Directives Information Provided: No Do you have a plan to hurt others: No Plan Recently lost weight without trying: No How much weight loss: Not applicable Eating poorly because of decreased appetite: No Nutrition screen score: 0 Nutrition Risks: No Nutritional Risk Poor oral hygiene: No Meds Allergies Allergy/AdvReac Type Severity Reaction Status Date / Time No Known Allergies Allergy Verified 07/08/25 16:23 Active Medications: Current Medications Acetaminophen (Acetaminophen 325 Mg Tablet) 650 mg PO Q6H PRN PRN Reason: Pain, Mild 1-3,fever,headache Calcium Carbonate (Calcium Carbonate 750 Mg Tab.Chew) 750 mg PO Q4H PRN PRN Reason: Heartburn Heparin Sodium (Porcine) (Heparin Sodium,Porcine 5,000 Unit/Ml Vial) 5,000 unit SUBCUT Q8H [facility] Last Admin: 07/08/25 19:43 Dose: 5,000 unit Heparin Sodium (Porcine) (Heparin Sodium,Porcine 5,000 Unit/Ml Vial) 5,000 unit SUBCUT Q8H [facility] Hydromorphone HCl (Hydromorphone Hcl 1 Mg/Ml Syringe) 0.5 mg IVPUSH Q6H PRN; Protocol PRN Reason: Pain, Moderate(Pain Scale 4-6) Magnesium Hydroxide (Milk Of Magnesia 30 Ml Oral.Susp) 30 ml PO DAILY PRN PRN Reason: Constipation Melatonin (Melatonin 3 Mg Tablet) 6 mg PO BEDTIME PRN PRN Reason: Insomnia Ondansetron HCl (Ondansetron Hcl 4 Mg/2 Ml Vial) 4 mg IVPUSH Q8H PRN PRN Reason: Vomiting Sodium Chloride (0.9 % Sodium Chloride Flush 3 Ml Syringe) 3 ml IVFLUSH QSHIFT [facility] Home Medications ?Medication ?Instructions ?Recorded ?Confirmed ?Last Taken ?Type acetaminophen 325 mg tablet 650 mg PO Q6H PRN Fever Or Pain 07/08/25 07/08/25 Unknown History acetaminophen 650 mg rectal 650 mg NH Q6H PRN Fever Or Pain 07/08/25 07/08/25 Unknown History suppository amlodipine 10 mg tablet 10 mg PO SUTUTHSA 07/08/25 07/08/25 Unknown History bisacodyl 10 mg rectal suppository 10 mg NH DAILY PRN Constipation 07/08/25 07/08/25 Unknown History buprenorphine 5 mcg/hour weekly 1 patch transdermal QWEEK 07/08/25 07/08/25 Unknown History transdermal patch (Butrans) carvedilol 25 mg tablet 25 mg PO MOWEFR 07/08/25 07/08/25 Unknown History carvedilol 25 mg tablet 25 mg PO SUTUTHSA@0900,2100 07/08/25 07/08/25 Unknown History cinacalcet 60 mg tablet (Sensipar) 60 mg PO DAILY 07/08/25 07/08/25 Unknown History docusate sodium 100 mg capsule 100 mg PO BID PRN Constipation 07/08/25 07/08/25 Unknown History (Colace) enoxaparin 60 mg/0.6 mL 60 mg subcut DAILY 07/08/25 07/08/25 Unknown History subcutaneous syringe gabapentin 100 mg capsule 100 mg PO BEDTIME 07/08/25 07/08/25 Unknown History isosorbide mononitrate 120 mg 120 mg PO DAILY 07/08/25 07/08/25 Unknown History tablet,extended release 24 hr lactulose 10 gram/15 mL oral 30 ml PO DAILY PRN Constipation 07/08/25 07/08/25 Unknown History solution lanolin alcohols-mineral 1 appl topical Q8H PRN Dry Skin 07/08/25 07/08/25 Unknown History oil-w.petrolatum-ceresin topical cream (Eucerin topical cream) lanthanum 1,000 mg chewable tablet 2,000 mg PO BID 07/08/25 07/08/25 Unknown History methyl salicylate 30 %-menthol 10 1 appl topical BID PRN Pain 07/08/25 07/08/25 Unknown History % topical cream (Icy Hot) naloxone 0.4 mg/mL injection 0.4 mg subcut Q2M PRN Opiate 07/08/25 07/08/25 Unknown History solution Reversal naloxone 4 mg/actuation nasal spray 4 mg intranasal Q3M PRN Opiate 07/08/25 07/08/25 Unknown History Reversal nutritional supplements 1 ea PO TID 07/08/25 07/08/25 Unknown History nystatin 100,000 unit/gram topical 1 appl topical BID 07/08/25 07/08/25 Unknown History powder pantoprazole 40 mg tablet,delayed 40 mg PO DAILY@0630 07/08/25 07/08/25 Unknown History release thiamine HCl (vitamin B1) 100 mg 100 mg PO DAILY 07/08/25 07/08/25 Unknown History tablet valsartan 160 mg tablet 160 mg PO SUTUTHSA 07/08/25 07/08/25 Unknown History vitamin B complex and vitamin C 1 cap PO DAILY 07/08/25 07/08/25 Unknown History no.20-folic acid 1 mg capsule ([employer]-sensing) vitamin B complex-folic acid 0.4 1 tab PO DAILY 07/08/25 07/08/25 Unknown History mg tablet (B Complex 1 (with folic acid)) Physical Exam Vital Signs and Narrative: Vital Signs: Last Vital Signs Temp 98.8 F 07/08/25 19:29 Pulse 81 07/08/25 19:29 Resp 18 07/08/25 19:29 BP 168/88 H 07/08/25 19:29 Pulse Ox 99 07/08/25 19:29 O2 Del Method Nasal Cannula 07/08/25 19:29 O2 Flow Rate 2 07/08/25 19:29 Oxygen Flow Rate 2 07/08/25 16:21 BMI result Body Mass Index 22.1 General: AOx3, no acute distress Resp: CTA bilaterally, no wheezing or crackles CVS: S1, S2, RRR GI: +BS, NT, no distention Skin: Warm, dry Neuro: Cranial nerves II-XII grossly intact bilaterally. Motor grossly intact bilaterally Extremities: No pitting edema. ofelia bandages on L ankle and R knee. Psych: Appropriate affect Const: General: No confusion Orientation/consciousness: No confusion Neuro: General: No confusion Results Labs 07/08/25 17:36 07/08/25 17:36 Labs: Laboratory Results - last 24 hr 07/08/25 07/08/25 07/08/25 17:36 17:41 18:13 MCV 95.7 MCH 31.1 MCHC 32.5 RDW 17.5 H Plt Count 157 L MPV 9.9 Immature Gran % (Auto) 0.1 Neut % (Auto) 78.8 H Lymph % (Auto) 9.7 L Wilbarger % (Auto) 6.1 Eos % (Auto) 4.7 H Baso % (Auto) 0.6 Lymph # (Auto) 0.7 L [place] # (Auto) 0.4 Eos # (Auto) 0.3 Baso # (Auto) 0.0 Abs Immat Gran (auto) 0.01 Absolute Neuts (auto) 5.5 Absolute Nucleated RBC 0.000 Nucleated RBC % (auto) 0.0 VBG pH 7.43 VBG pCO2 42 VBG pO2 46 VBG HCO3 28 H VBG O2 Saturation 66.0 VBG Base Excess 4.0 Anion Gap 23 H Estim Creat Clear Calc 5.3 Estimated GFR 5 POC Glucose 76 Random Glucose 82 Calcium 9.4 Magnesium 2.0 Total Bilirubin 0.4 AST 20 ALT 12 Alkaline Phosphatase 117 Total Protein 8.3 H Albumin 3.9 Influenza Type A (PCR) NEGATIVE Influenza Type B (PCR) NEGATIVE RSV RNA Qual (PCR) NEGATIVE SARS-CoV-2 RNA (RT-PCR) NEGATIVE Assessment and Plan (1) Acute hyperkalemia: Status: Acute (2) ESRD (end stage renal disease) on dialysis: Status: Acute (3) Acute hypoxemic respiratory failure: Status: Acute (4) Pulmonary edema due to fluid overload: Status: Acute Plan Patient is a 79-year-old male with a past medical history significant for ESRD on HD MWF (missed yesterday), HLD, HTN and history DVT, who presented to the ED due to shortness of breath, oxygenating at 92% on room air, improved to 94% with 2 L via NC. Acute hyperkalemia secondary to ESRD on HD, missed dialysis yesterday - potassium 6.3 on arrival - EKG with concern for peaked T-waves - no chest pain - patient in dextrose, bicarb, insulin, Lokelma and calcium - urgent dialysis performed - nephrology consult - monitor on telemetry Acute hypoxic respiratory failure secondary to pulmonary edema due to fluid overload - no leukocytosis or fever, no infection identified - COVID/flu/RSV negative - chest x-ray with pulmonary vascular congestion - patient received dialysis with improvement - titrate oxygen as needed - monitor CBC and BMP HTN - continue home meds HLD - continue home meds History DVT - on heparin Med rec pending Full code VTE prophylaxis: Heparin Patient with acute hyperkalemia secondary to ESRD with missed dialysis complicated by acute hypoxic respiratory failure secondary to pulmonary edema, requiring admission for at least 2 midnights stay for urgent hemodialysis and monitoring. Quality Stroke Does the patient have a stroke diagnosis?: No VTE Prior VTE?: No VTE Risk Level:: Medical - low VTE Device Contraindication: N/A - Device Ordered VTE Drug Contraindication: N/A - Med Ordered
[2025-07-08 23:03] VITALS: BMI 19.8
[2025-07-08 23:14] VITALS: BP 191/90; PULSE 82; RESP 18; TEMP 36.4; O2SAT 91
[2025-07-08] MEDS: 0.9 % Sodium Chloride Flush 3 ML SYRINGE IVFLUSH (23:24)
[2025-07-08 23:27] LABS: Glucose, Whole Blood 84 mg/dL (60-115)
[2025-07-09 01:02] LABS: Glucose, Whole Blood 163 mg/dL (60-115)
[2025-07-09 03:06] VITALS: BP 168/88; PULSE 76; RESP 18; TEMP 36; O2SAT 96
[2025-07-09 06:55] LABS: Hematocrit 36.7 % (42.0-52.0); Hemoglobin 11.8 g/dl (14.0-18.0); Mean Corpuscular HGB Conc 32.2 g/dl (31.0-36.0); Mean Corpuscular Hemoglobin 31.1 pg (27.0-33.0); Mean Corpuscular Volume 96.8 fL (80.0-98.0); NRBC Abs Auto 0.000 X10*3/uL (0.0-0.012); NRBC Pct Auto 0.0 /100WBC (0.0-0.2); Platelet Count 166 X10*3/uL (160-400); Red Blood Count 3.79 X10*6/uL (4.60-5.80); White Blood Count 6.8 X10*3/uL (4.8-10.8)
[2025-07-09 07:15] VITALS: BP 156/80; PULSE 81; RESP 16; TEMP 36.6; O2SAT 95
[2025-07-09 08:10] LABS: Alanine Aminotransferase 10 U/L (0-40); Albumin Level 3.8 g/dL (3.5-5.0); Alkaline Phosphatase 114 U/L (39-117); Aspartate Amino Transferase 20 U/L (5-37); Blood Urea Nitrogen 35 mg/dL (9-16); Calcium 9.9 mg/dL (8.4-10.2); Creatinine Clr Calc Pharmacy 7.0; Estimated Glomerular Filt Rate 8; Total Protein 8.3 g/dL (6.5-8.0)
[2025-07-09 08:21] LABS: Anion Gap 21 (12-20); Carbon Dioxide 29 mmol/L (22-29); Chloride 99 mmol/L (96-108); Potassium 4.6 mmol/L (3.3-5.1); Sodium 144 mmol/L (135-145)
--- NOTE | 2025-07-09 09:02 | MHC.CM.PN ---
Patient is a LTC Resident and [facility] bed hold at [facility] and returning there at dc, via BLS, is the goal. ADRIENNE has initiated and will follow for dc planning. ADRIENNE has asked [facility] to fax a copy of the HCP to CM and to indicate where Patient receives his HD. Patient is also on Suboxone.
[2025-07-09] MEDS: 0.9 % Sodium Chloride Flush 3 ML SYRINGE IVFLUSH (09:46)
--- NOTE | 2025-07-09 11:15 | PM.CNNEP ---
History of Present Illness Reason for Consult Consult date: 07/09/25 Chief Complaint Chief complaint: ESRD History of Present Illness Narrative: 79 y/o male with ESRD MWF, HLD, HTN, hx DVT. presented 07/08 with shortness of breath and cough, missed his dialysis session earlier that day. patient received dialysis later that evening he states he is feeling much better. 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 No other concerns/complaints at this time. Review of Systems Review of Systems Yes all other systems are reviewed and are negative [facility] Past Medical History Medical History ESRD (end stage renal disease) HLD (hyperlipidemia) HTN (hypertension) DVT (deep venous thrombosis) Social History Social History Housing: Assisted Housing Other:: [facility] Patient Tobacco Use Status: Never used Tobacco Smoked in Last 30 Days: No Use of substances other than those prescribed or required for medical reasons: No Have you been hit, kicked, punched, or otherwise hurt by someone within the past year? If so, by whom?: No Do you feel safe in your current relationship?: No Current Relationship Is there a partner from a previous relationship who is making you feel unsafe now?: No Are you made to feel afraid or neglected: No Advance Directives: No Advance Directives Information Provided: No Do you have a plan to hurt others: No Plan Recently lost weight without trying: No How much weight loss: Not applicable Eating poorly because of decreased appetite: No Nutrition screen score: 0 Nutrition Risks: No Nutritional Risk Poor oral hygiene: No service: No Meds Allergies Allergy/AdvReac Type Severity Reaction Status Date / Time No Known Allergies Allergy Verified 07/08/25 16:23 Active Medications: Current Medications Acetaminophen (Acetaminophen 325 Mg Tablet) 650 mg PO Q6H PRN PRN Reason: Pain, Mild 1-3,fever,headache Amlodipine Besylate (Amlodipine Besylate 10 Mg Tablet) [facility]; Protocol Last Admin: 07/09/25 10:29 Dose: 10 mg Bisacodyl (Bisacodyl 10 Mg Supp.Rect) 10 mg DC DAILY PRN PRN Reason: Constipation Calcium Carbonate (Calcium Carbonate 750 Mg Tab.Chew) 750 mg PO Q4H PRN PRN Reason: Heartburn Carvedilol (Carvedilol 25 Mg Tablet) 25 mg PO SUTUTHSA@0900,2100 [facility]; Protocol Last Admin: 07/09/25 09:46 Dose: 25 mg Carvedilol (Carvedilol 25 Mg Tablet) 25 mg PO MOWE [facility]; Protocol Docusate Sodium (Docusate Sodium 100 Mg Capsule) 100 mg PO BID PRN PRN Reason: Constipation Gabapentin (Gabapentin 100 Mg Capsule) 100 mg PO BEDTIME [facility] Last Admin: 07/09/25 01:02 Dose: Not Given Heparin Sodium (Porcine) (Heparin Sodium,Porcine 5,000 Unit/Ml Vial) 5,000 unit SUBCUT Q8H [facility] Last Admin: 07/09/25 10:29 Dose: 5,000 unit Hydromorphone HCl (Hydromorphone Hcl 1 Mg/Ml Syringe) 0.5 mg IVPUSH Q6H PRN; Protocol PRN Reason: Pain, Moderate(Pain Scale 4-6) Last Admin: 07/09/25 10:29 Dose: 0.5 mg Isosorbide Mononitrate (Isosorbide Mononitrate 60 Mg Tab.Er.24h) 120 mg PO DAILY [facility]; Protocol Last Admin: 07/09/25 09:43 Dose: 120 mg Lactulose (Lactulose 20 Gm/30 Ml Solution) 20 gm PO DAILY PRN PRN Reason: Constipation Magnesium Hydroxide (Milk Of Magnesia 30 Ml Oral.Susp) 30 ml PO DAILY PRN PRN Reason: Constipation Melatonin (Melatonin 3 Mg Tablet) 6 mg PO BEDTIME PRN PRN Reason: Insomnia Multi-Ingred Cream/Lotion/Oil/Oint (Mineral Oil/Petrolatum,White 106 Gm Tube) 1 appl TOPICAL Q8H PRN; Protocol PRN Reason: Dry Skin Multivitamins/Vitamin C (Multivitamin Tablet) 1 tab PO DAILY [facility] Last Admin: 07/09/25 09:46 Dose: 1 tab Non-Formulary Medication (Cinacalcet [Sensipar]) 60 mg PO DAILY [facility] Non-Formulary Medication (Lanthanum) 2,000 mg PO BID [facility] Omeprazole (Omeprazole 20 Mg Capsule.Dr) 20 mg PO DAILY@0630 [facility] Last Admin: 07/09/25 06:02 Dose: 20 mg Ondansetron HCl (Ondansetron Hcl 4 Mg/2 Ml Vial) 4 mg IVPUSH Q8H PRN PRN Reason: Vomiting Sodium Chloride (0.9 % Sodium Chloride Flush 3 Ml Syringe) 3 ml IVFLUSH QSHIFT [facility] Last Admin: 07/09/25 09:46 Dose: 3 ml Thiamine HCl (Thiamine Hcl 100 Mg Tablet) 100 mg PO DAILY [facility] Last Admin: 07/09/25 09:46 Dose: 100 mg Valsartan (Valsartan 160 Mg Tablet) [facility]; Protocol Last Admin: 07/09/25 10:29 Dose: 160 mg Home Medications ?Medication ?Instructions ?Recorded ?Confirmed ?Last Taken ?Type acetaminophen 325 mg tablet 650 mg PO Q6H PRN Fever Or Pain 07/08/25 07/08/25 Unknown History acetaminophen 650 mg rectal 650 mg DC Q6H PRN Fever Or Pain 07/08/25 07/08/25 Unknown History suppository amlodipine 10 mg tablet 10 mg PO SUTUTHSA 07/08/25 07/08/25 Unknown History bisacodyl 10 mg rectal suppository 10 mg DC DAILY PRN Constipation 07/08/25 07/08/25 Unknown History buprenorphine 5 mcg/hour weekly 1 patch transdermal TH 07/08/25 07/09/25 07/04/25 History transdermal patch (Butrans) carvedilol 25 mg tablet 25 mg PO MOWEFR 07/08/25 07/08/25 Unknown History carvedilol 25 mg tablet 25 mg PO [facility]@0900,2100 07/08/25 07/08/25 Unknown History cinacalcet 60 mg tablet (Sensipar) 60 mg PO DAILY 07/08/25 07/08/25 Unknown History docusate sodium 100 mg capsule 100 mg PO BID PRN Constipation 07/08/25 07/08/25 Unknown History (Colace) enoxaparin 60 mg/0.6 mL 60 mg subcut DAILY 07/08/25 07/08/25 Unknown History subcutaneous syringe gabapentin 100 mg capsule 100 mg PO BEDTIME 07/08/25 07/08/25 Unknown History isosorbide mononitrate 120 mg 120 mg PO DAILY 07/08/25 07/08/25 Unknown History tablet,extended release 24 hr lactulose 10 gram/15 mL oral 30 ml PO DAILY PRN Constipation 07/08/25 07/08/25 Unknown History solution lanolin alcohols-mineral 1 appl topical Q8H PRN Dry Skin 07/08/25 07/08/25 Unknown History oil-w.petrolatum-ceresin topical cream (Eucerin topical cream) lanthanum 1,000 mg chewable tablet 2,000 mg PO BID 07/08/25 07/08/25 Unknown History methyl salicylate 30 %-menthol 10 1 appl topical BID PRN Pain 07/08/25 07/08/25 Unknown History % topical cream (Icy Hot) naloxone 0.4 mg/mL injection 0.4 mg subcut Q2M PRN Opiate 07/08/25 07/08/25 Unknown History solution Reversal naloxone 4 mg/actuation nasal spray 4 mg intranasal Q3M PRN Opiate 07/08/25 07/08/25 Unknown History Reversal nutritional supplements 1 ea PO TID 07/08/25 07/08/25 Unknown History nystatin 100,000 unit/gram topical 1 appl topical BID 07/08/25 07/08/25 Unknown History powder pantoprazole 40 mg tablet,delayed 40 mg PO DAILY@0630 07/08/25 07/08/25 Unknown History release thiamine HCl (vitamin B1) 100 mg 100 mg PO DAILY 07/08/25 07/08/25 Unknown History tablet valsartan 160 mg tablet 160 mg PO SUTUTHSA 07/08/25 07/08/25 Unknown History vitamin B complex and vitamin C 1 cap PO DAILY 07/08/25 07/08/25 Unknown History no.20-folic acid 1 [facility] vitamin B complex-folic acid 0.4 1 tab PO DAILY 07/08/25 07/08/25 Unknown History mg tablet (B Complex 1 (with folic acid)) Physical Exam Vital Signs: Last Vital Signs Temp 97.3 F 07/09/25 15:29 Pulse 70 07/09/25 15:29 Resp 18 07/09/25 15:29 BP 142/78 H 07/09/25 15:29 Pulse Ox 90 L 07/09/25 15:29 O2 Del Method Room Air 07/09/25 15:29 O2 Flow Rate 2 07/09/25 07:15 Oxygen Flow Rate 2 07/08/25 16:21 BMI result Body Mass Index 19.8 Const General: no acute distress, alert and awake Resp Effort & Inspection: normal respiratory effort and able to speak in complete sentences Auscultation: clear to auscultation bilaterally Cardio Rate: regular rate Rhythm: regular rhythm Heart sounds: S1 normal heart sound present and S2 normal heart sound present GI Palpation (GI): Soft to palpation and nontender Skin Rashes: no rashes Extrem General: No edema Results Lab Results 07/09/25 06:16 07/09/25 06:16 Lab results: Chemistry 07/08/25 07/09/25 17:36 06:16 Sodium 145 144 Potassium 6.3 H* D 4.6 D Carbon Dioxide 26 29 BUN 63 H 35 H Creatinine 10.02 H* 6.92 H* Calcium 9.4 9.9 Hematology 07/08/25 07/09/25 17:36 06:16 WBC 7.0 6.8 Hgb 11.7 L 11.8 L Plt Count 157 L 166 Assessment and Plan (1) ESRD (end stage renal disease) on dialysis: Status: Acute Plan ESRD on HD MWF, here with fluid overload after missing dialysis session patient was dialyzed yesterday, labs have normalized. Patient's symptoms have improved and he is clinically euvolemic. He is ok to discharge from a renal standpoint and return to outpatient dialysis. Discussed with Dr Jimenez. Procedures Date of Service Date of Service: 07/09/25
[2025-07-09 11:16] VITALS: BP 142/74; PULSE 72; RESP 16; TEMP 36.6; O2SAT 90
[2025-07-09 15:29] VITALS: BP 142/78; PULSE 70; RESP 18; TEMP 36.3; O2SAT 90
--- NOTE | 2025-07-09 15:47 | MHC.CM.PN ---
Per PASTORAL ASSISTANT, Patient is medically cleared for dc today; he will return to [facility] today at 6PM, via [facility].
--- NOTE | 2025-07-09 16:14 | P.DS_ITS ---
DS: Providers Provider Date of Service: 07/09/25 Date of admission: 07/08/25 19:00 Date of discharge: 07/09/25 Primary care physician: LESTER CHOI Consults: 07/08/25 19:46 Consult to Nephrology Routine Consulting Provider: [facility] Reason for consultation: missed HD; hyperkalemia DS: Diagnosis Discharge Diagnosis (1) ESRD (end stage renal disease) on dialysis: Status: Acute DS: Summary Hospital Course Hospital Course: History and physical as per admitting provider. Patient is a 79-year-old male with a past medical history significant for ESRD on HD MWF (missed yesterday), HLD, HTN and history DVT, who presented to the ED due to shortness of breath, oxygenating at 92% on room air, improved to 94% with 2 L via NC. The patient reports that he missed dialysis yesterday and has been feeling short of breath. He denies any chest pain, fever, chills, nausea or vomiting. He has been around sick people recently and does have a productive cough. He also reports he has a left inguinal hernia that he is trying to get repaired soon but would like this taken care of all use hospitalized. Acute hyperkalemia secondary to ESRD on HD, missed dialysis day prior to admission - potassium 6.3 on arrival - EKG with concern for peaked T-waves - no chest pain - patient treated with dextrose, bicarb, insulin, Lokelma and calcium - urgent dialysis performed - Hypokalemia resolved Acute hypoxic respiratory failure secondary to pulmonary edema due to fluid overload - no leukocytosis or fever, no infection identified - COVID/flu/RSV negative - chest x-ray with pulmonary vascular congestion - patient received dialysis with improvement HTN - continue home meds HLD - continue home meds Time Attestation Discharge Coordination Time (in mins): 40 Quality: Safe Use of Opioids Does Pt have an Active Cancer Diagnosis on the Problem List?: No Quality: Stroke Does the patient have a stroke diagnosis?: No Physical Exam Exam: Exam: Appearing in no acute distress head is normocephalic atraumatic eyes pupils are PERRLA sclera is anicteric mouth throat mucous membranes are intact and moist neck is supple no lymphadenopathy, no JVD noted lung sounds are clear to auscultation heart regular rate rhythm, clear S1, S2 positive bowel sounds, abdomen is soft, nontender neuro patient is alert x3, no focal deficits Vital Signs: Vital Signs: Last Vital Signs Temp 97.3 F 07/09/25 15:29 Pulse 70 07/09/25 15:29 Resp 18 07/09/25 15:29 BP 142/78 H 07/09/25 15:29 Pulse Ox 90 L 07/09/25 15:29 O2 Del Method Room Air 07/09/25 15:29 O2 Flow Rate 2 07/09/25 07:15 Oxygen Flow Rate 2 07/08/25 16:21 BMI result Body Mass Index 19.8 DS: Data Data Completed and Pending Labs on day of discharge: Laboratory Results - last 24 hr 07/08/25 07/08/25 07/08/25 17:36 17:41 18:13 WBC 7.0 RBC 3.76 L Hgb 11.7 L Hct 36.0 L MCV 95.7 MCH 31.1 MCHC 32.5 RDW 17.5 H Plt Count 157 L MPV 9.9 Immature Gran % (Auto) 0.1 Neut % (Auto) 78.8 H Lymph % (Auto) 9.7 L [place] % (Auto) 6.1 Eos % (Auto) 4.7 H Baso % (Auto) 0.6 Lymph # (Auto) 0.7 L [place] # (Auto) 0.4 Eos # (Auto) 0.3 Baso # (Auto) 0.0 Abs Immat Gran (auto) 0.01 Absolute Neuts (auto) 5.5 Absolute Nucleated RBC 0.000 Nucleated RBC % (auto) 0.0 VBG pH 7.43 VBG pCO2 42 VBG pO2 46 VBG HCO3 28 H VBG O2 Saturation 66.0 VBG Base Excess 4.0 Sodium 145 Potassium 6.3 H* D Chloride 102 Carbon Dioxide 26 Anion Gap 23 H BUN 63 H Creatinine 10.02 H* Estim Creat Clear Calc 5.3 Estimated GFR 5 POC Glucose 76 Random Glucose 82 Calcium 9.4 Magnesium 2.0 Total Bilirubin 0.4 AST 20 ALT 12 Alkaline Phosphatase 117 Troponin I High Sens 108.6 H* Total Protein 8.3 H Albumin 3.9 Influenza Type A (PCR) NEGATIVE Influenza Type B (PCR) NEGATIVE RSV RNA Qual (PCR) NEGATIVE SARS-CoV-2 RNA (RT-PCR) NEGATIVE 07/08/25 07/09/25 07/09/25 23:19 00:58 06:16 WBC 6.8 RBC 3.79 L Hgb 11.8 L Hct 36.7 L MCV 96.8 MCH 31.1 MCHC 32.2 RDW 17.5 H Plt Count 166 MPV 10.3 Immature Gran % (Auto) Neut % (Auto) Lymph % (Auto) [place] % (Auto) Eos % (Auto) Baso % (Auto) Lymph # (Auto) [place] # (Auto) Eos # (Auto) Baso # (Auto) Abs Immat Gran (auto) Absolute Neuts (auto) Absolute Nucleated RBC 0.000 Nucleated RBC % (auto) 0.0 VBG pH VBG pCO2 VBG pO2 VBG HCO3 VBG O2 Saturation VBG Base Excess Sodium 144 Potassium 4.6 D Chloride 99 Carbon Dioxide 29 Anion Gap 21 H BUN 35 H Creatinine 6.92 H* Estim Creat Clear Calc 7.0 Estimated GFR 8 POC Glucose 84 163 H Random Glucose 74 Calcium 9.9 Magnesium Total Bilirubin 0.6 AST 20 ALT 10 Alkaline Phosphatase 114 Troponin I High Sens Total Protein 8.3 H Albumin 3.8 Influenza Type A (PCR) Influenza Type B (PCR) RSV RNA Qual (PCR) SARS-CoV-2 RNA (RT-PCR) Discharge Plan Discharge Anticipated Discharge Date/Time: 07/09/25 16:00 Patient Disposition: Xfer LT Discharge Diagnosis: Acute hyperkalemia Acute hypoxic respiratory failure secondary to fluid overload Referrals: [facility] [Outside] - 1 Week LESTER CHOI [Primary Care Provider, Internal Medicine] - 1 Week Discharge Medications: Continued carvedilol 25 mg Tablet 25 mg PO NUBIA@0900,2100 Rx Instructions: must administer with a meal/food carvedilol 25 mg Tablet 25 mg PO MOWEFR Rx Instructions: must administer with a meal/food on dialysis days acetaminophen 325 mg Tablet 650 mg PO Q6H PRN (Reason: Fever Or Pain) acetaminophen 650 mg Suppository 650 mg [place] Q6H MDD 3gm/24h PRN (Reason: Fever Or Pain) nutritional supplements Liquid 1 ea PO TID Rx Instructions: 240 ml naloxone 0.4 mg/mL Solution 0.4 mg SUBCUT Q2M PRN (Reason: Opiate Reversal) Rx Instructions: NTExceed 10 mg total dose/episode thiamine HCl (vitamin B1) 100 mg Tablet 100 mg PO DAILY isosorbide mononitrate 120 mg Tablet Extended Release 24 Hr 120 mg PO DAILY amlodipine 10 mg Tablet 10 mg PO SUTUTHSA bisacodyl 10 mg Suppository 10 mg [place] DAILY PRN (Reason: Constipation) pantoprazole 40 mg Tablet,Delayed Release (Dr/Ec) 40 mg PO DAILY@0630 docusate sodium [Colace] 100 mg Capsule 100 mg PO BID PRN (Reason: Constipation) gabapentin 100 mg Capsule 100 mg PO BEDTIME nystatin 100,000 unit/gram Powder 1 appl TOPICAL BID Rx Instructions: apply to groin Wescaps 1 mg Capsule 1 cap PO DAILY valsartan 160 mg Tablet 160 mg PO SUTUTHSA enoxaparin 60 mg/0.6 mL Syringe 60 mg SUBCUT DAILY cinacalcet [Sensipar] 60 mg Tablet 60 mg PO DAILY vitamin B complex-folic acid [B Complex 1 (with folic acid)] 0.4 mg Tablet 1 tab PO DAILY lactulose 10 gram/15 mL Solution 30 ml PO DAILY PRN (Reason: Constipation) lanthanum 1,000 mg Tablet,Chewable 2,000 mg PO BID Rx Instructions: administer with food; chew thoroughly before swallowing Icy Hot 30-10 % Cream 1 appl TOPICAL BID PRN (Reason: Pain) Rx Instructions: apply to lower back Eucerin Cream 1 appl TOPICAL Q8H PRN (Reason: Dry Skin) buprenorphine [Butrans] 5 mcg/hour Patch Weekly 1 patch TRANSDERMAL TH naloxone 4 mg/actuation [place],Non-Aerosol 4 mg INTRANASAL Q3M PRN (Reason: Opiate Reversal) Rx Instructions: spray 1 dose into ONE nostril; alternate nostrils w each dose until help arrives Discharge Orders: Discharge Order (Routine); Ordered 07/09/25 Ordered By: Marcy Palacio Diet: Advance to usual diet Activity on Discharge: As tolerated Stand Alone Forms: Patient Portal Discharge page Print Language: Frisian Care Plan Goals: Continue dialysis on regular schedule days Health Concerns: Acute hyperkalemia Acute hypoxic respiratory failure secondary to fluid overload Plan of Treatment: Follow up with primary care provider as needed Take all medications as prescribed Assessment: See discharge summary
== END 2025-07-09 19:21 | DRG 425 ==
LOC: HO.ED 19:06 → HO.EDOVER 19:09 → HO.IMC 19:34
PROVIDERS: Hospitalist; Admitting Provider Internal Medicine Critical Care Medicine; Emergency Provider Emergency Medicine Emergency Medical Services; PCP Emergency Medicine; Visit Provider Internal Medicine Critical Care Medicine
DX: E87.70 Fluid overload, unspecified (principal); J96.01 Acute respiratory failure with hypoxia; I12.0 Hypertensive chronic kidney disease with stage 5 chronic kidney disease or end stage renal disease; E78.5 Hyperlipidemia, unspecified; E87.5 Hyperkalemia; K40.90 Unilateral inguinal hernia, without obstruction or gangrene, not specified as recurrent; N18.6 End stage renal disease; Z20.822 Contact with and (suspected) exposure to COVID-19; Z99.2 Dependence on renal dialysis; Z86.718 Personal history of other venous thrombosis and embolism; Z91.158 Patient's noncompliance with renal dialysis for other reason; Z79.899 Other long term (current) drug therapy
CPT/HCPCS: 36415; 71045; 80053; 82803; 82947; 83735; 84484; 85025; 85027; 87637; 90999; 93005; 99285; J0613; J1171; J1644

== ENCOUNTER → 2025-07-08 17:00 | Outpatient (BNV) | payer MEDICAID, SELFPAY | PROVIDERS: Emergency Provider Emergency Medicine Emergency Medical Services; Visit Provider Radiology Diagnostic Radiology | DX: R06.02 Shortness of breath (principal) | CPT/HCPCS: 71045 ==

== ENCOUNTER → 2025-07-08 18:05 | Outpatient (BNV) | payer MEDICAID, SELFPAY | PROVIDERS: Admitting Provider Internal Medicine Critical Care Medicine; Emergency Provider Emergency Medicine Emergency Medical Services; Visit Provider Internal Medicine Cardiovascular Disease | DX: I44.0 Atrioventricular block, first degree (principal); I45.2 Bifascicular block | CPT/HCPCS: 93010 ==

== ENCOUNTER → 2025-07-08 19:00 | Outpatient (BNV) | payer MEDICAID, SELFPAY | PROVIDERS: Admitting Provider Internal Medicine Critical Care Medicine; Emergency Provider Emergency Medicine Emergency Medical Services; PCP Emergency Medicine; Visit Provider Physician Assistant | DX: E87.5 Hyperkalemia (principal); N18.6 End stage renal disease; Z99.2 Dependence on renal dialysis; J96.01 Acute respiratory failure with hypoxia; J81.1 Chronic pulmonary edema | CPT/HCPCS: 99223 ==

== ENCOUNTER → 2025-07-08 19:00 | Outpatient (BNV) | payer MEDICAID, SELFPAY | PROVIDERS: Admitting Provider Internal Medicine Critical Care Medicine; Emergency Provider Emergency Medicine Emergency Medical Services; PCP Emergency Medicine; Visit Provider Nurse Practitioner Family | DX: N18.6 End stage renal disease (principal); Z99.2 Dependence on renal dialysis | CPT/HCPCS: 99221 ==

== ENCOUNTER 2025-08-13 18:11 | Emergency (ER) | payer MEDICAID, SELFPAY ==
[2025-08-13 18:38] VITALS: BP 172/91; BP 182/98; PULSE 75; PULSE 76; RESP 18; TEMP 36.8; O2SAT 95; O2SAT 98; BMI 21.9
[2025-08-13 19:35] VITALS: BP 178/95; PULSE 74; RESP 17; TEMP 36.9; O2SAT 95
[2025-08-13 20:36] LABS: MANUAL DIFF FLAG NO
[2025-08-13 20:42] LABS: Hematocrit 34.3 % (42.0-52.0); Hemoglobin 10.9 g/dl (14.0-18.0); Imm Gran Abs Auto 0.01 X10*3/uL (0.00-0.03); Imm Gran Pct Auto 0.2 % (0.0-0.4); Lymphocytes Absolute Auto 0.7 X10*3/uL (1.2-4.9); Mean Corpuscular HGB Conc 31.8 g/dl (31.0-36.0); Mean Corpuscular Hemoglobin 30.2 pg (27.0-33.0); Mean Corpuscular Volume 95.0 fL (80.0-98.0); NRBC Abs Auto 0.000 X10*3/uL (0.0-0.012); NRBC Pct Auto 0.0 /100WBC (0.0-0.2); Platelet Count 153 X10*3/uL (160-400); Red Blood Count 3.61 X10*6/uL (4.60-5.80); White Blood Count 6.0 X10*3/uL (4.8-10.8)
[2025-08-13 20:55] LABS: INTERNATIONAL NORM RATIO 1.2 (0.9-1.1); Prothrombin Time 13.7 SEC (10.9-12.4)
[2025-08-13 21:00] LABS: Anion Gap 20 (12-20); Blood Urea Nitrogen 49 mg/dL (9-16); Calcium 9.0 mg/dL (8.4-10.2); Carbon Dioxide 28 mmol/L (22-29); Chloride 99 mmol/L (96-108); Creatinine Clr Calc Pharmacy 5.9; Estimated Glomerular Filt Rate 6; Potassium 4.6 mmol/L (3.3-5.1); Sodium 142 mmol/L (135-145)
--- NOTE | 2025-08-13 21:17 | PC.NURSE ---
pharmacy called for DDAVP
[2025-08-13 21:25] VITALS: BP 171/96; PULSE 77; RESP 16; TEMP 36.9; O2SAT 94
--- NOTE | 2025-08-13 21:30 | PC.NURSE ---
dressing removed to left AV fistula and new dressing with ofelia bandage applied by Dr. Huang. dressing is CDI with no strikethrough. positive bruit and thrill to left av fistula, positive CSM distally.
[2025-08-13] MEDS: SODIUM CHLORIDE 0.9% IV (22:17)
[2025-08-13] MEDS: DESMOPRESSIN ACETATE IV (22:17)
--- NOTE | 2025-08-13 22:33 | ED.GENADULT ---
HPI - General Adult General Chief complaint: General Medical Stated complaint: bleeding from fistula hasn't stopped bleeding x1hr Time Seen by Provider: 08/13/25 18:33 History of Present Illness HPI narrative: Patient is a 79-year-old male with a history of being from [facility]. Normally gets dialyzed on Tuesday. Patient complaining of bleeding from the fistula site today. Got dialyzed yesterday. There is no fever no chills no chest pain or shortness breath no nausea no vomiting. The bleeding was stopped for an hour patient's wound was then wrapped and sent to the ED for further evaluation. Related Data Home Medications ?Medication ?Instructions ?Recorded ?Confirmed acetaminophen 325 mg tablet 650 mg PO Q6H PRN Fever Or Pain 07/08/25 07/08/25 acetaminophen 650 mg rectal 650 mg NH Q6H PRN Fever Or Pain 07/08/25 07/08/25 suppository amlodipine 10 mg tablet 10 mg PO SUTUTHSA 07/08/25 07/08/25 bisacodyl 10 mg rectal suppository 10 mg NH DAILY PRN Constipation 07/08/25 07/08/25 buprenorphine 5 mcg/hour weekly 1 patch transdermal TH 07/08/25 07/09/25 transdermal patch (Butrans) carvedilol 25 mg tablet 25 mg PO MOWEFR 07/08/25 07/08/25 carvedilol 25 mg tablet 25 mg PO SUTUTHSA@0900,2100 07/08/25 07/08/25 cinacalcet 60 mg tablet (Sensipar) 60 mg PO DAILY 07/08/25 07/08/25 docusate sodium 100 mg capsule 100 mg PO BID PRN Constipation 07/08/25 07/08/25 (Colace) enoxaparin 60 mg/0.6 mL 60 mg subcut DAILY 07/08/25 07/08/25 subcutaneous syringe gabapentin 100 mg capsule 100 mg PO BEDTIME 07/08/25 07/08/25 isosorbide mononitrate 120 mg 120 mg PO DAILY 07/08/25 07/08/25 tablet,extended release 24 hr lactulose 10 gram/15 mL oral 30 ml PO DAILY PRN Constipation 07/08/25 07/08/25 solution lanolin alcohols-mineral 1 appl topical Q8H PRN Dry Skin 07/08/25 07/08/25 oil-w.petrolatum-ceresin topical cream (Eucerin topical cream) lanthanum 1,000 mg chewable tablet 2,000 mg PO BID 07/08/25 07/08/25 methyl salicylate 30 %-menthol 10 1 appl topical BID PRN Pain 07/08/25 07/08/25 % topical cream (Icy Hot) naloxone 0.4 mg/mL injection 0.4 mg subcut Q2M PRN Opiate 07/08/25 07/08/25 solution Reversal naloxone 4 mg/actuation nasal spray 4 mg intranasal Q3M PRN Opiate 07/08/25 07/08/25 Reversal nutritional supplements 1 ea PO TID 07/08/25 07/08/25 nystatin 100,000 unit/gram topical 1 appl topical BID 07/08/25 07/08/25 powder pantoprazole 40 mg tablet,delayed 40 mg PO DAILY@0630 07/08/25 07/08/25 release thiamine HCl (vitamin B1) 100 mg 100 mg PO DAILY 07/08/25 07/08/25 tablet valsartan 160 mg tablet 160 mg PO SUTUTHSA 07/08/25 07/08/25 vitamin B complex and vitamin C 1 cap PO DAILY 07/08/25 07/08/25 no.20-folic acid 1 mg capsule (Wescaps) vitamin B complex-folic acid 0.4 1 tab PO DAILY 07/08/25 07/08/25 mg tablet (B Complex 1 (with folic acid)) Allergies Allergy/AdvReac Type Severity Reaction Status Date / Time No Known Allergies Allergy Verified 08/13/25 18:41 Review of Systems Review of Systems: No fever no chills no chest pain or shortness breath no systemic complaints that is new Yes all other systems are reviewed and are negative [facility] Past Medical History Attestation statement: The following information was validated with the patient. Medical History ESRD (end stage renal disease) on dialysis ESRD (end stage renal disease) HLD (hyperlipidemia) HTN (hypertension) DVT (deep venous thrombosis) Social History Social History Housing: Shelter Housing Other:: [facility] Patient Tobacco Use Status: Never used Tobacco Smoked in Last 30 Days: No Use of substances other than those prescribed or required for medical reasons: No Advance Directives: No Advance Directives Information Provided: No Do you have a plan to hurt others: No Plan service: No Physical Exam ED Exam Exam: Appearance: Alert. Oriented X3. No acute distress. Eyes: Pupils equal, round and reactive to light. ENT: Pharynx normal. Neck: Normal inspection. Neck supple. No lymph nodes noted. No crepitus CVS: Normal heart rate and rhythm. Pulses normal. Normal S1 and S2 Respiratory: No respiratory distress. Breath sounds normal. No Wheezing. No rales Abdomen: Soft and nontender. No rigidity. No distention. good BS x4 Skin: Skin warm and dry. Normal skin color. Normal skin turgor. Extremities: No lower extremity edema. Neurovascular intact to all extremities. No Lacerations. No Rash. The patient is AV fistula to be in place. There is positive thrill. There is an area that is acutely oozing very small amount of blood noted in the left arm area. Neuro: Oriented X 3. No motor deficit. No sensory deficit. Moving all extermities. No slurred speech Vital Signs: Vital Signs - 24 hr 08/13/25 18:38 08/13/25 19:35 08/13/25 21:25 Temperature 98.2 F 98.5 F 98.5 F Pulse Rate 76 74 77 Respiratory Rate 18 17 16 Blood Pressure 172/91 H 178/95 H 171/96 H Pulse Oximetry 98 95 94 Oxygen Delivery Method Room Air Room Air Nasal Cannula Oxygen Flow Rate 1 BMI result Body Mass Index 21.9 Medications Administered Discontinued Medications Generic Name Dose Route Start Last Admin Trade Name Freq PRN Reason Stop Dose Admin Desmopressin Acetate 19 mcg/ 54.75 mls @ 100 mls/hr 08/13/25 21:30 08/13/25 22:17 Sodium Chloride IV 08/13/25 22:02 100 mls/hr ONCE ONE Administration Medical Decision Making Medical Decision Making MDM Narrative: I applied a 4 x 4 folded along with an [place] bandage. Seems to be controlling the bleeding in addition to a dose of a DDAVP. Currently in no distress. Patient's electrolytes were checked. His potassium is normal at 4.6. Patient's glucose is 86. Patient's blood pressure elevated at 172/91. After a dose of DDAVP after time bleeding mostly stopped. Still a 4 x 4 gauze was placed an [place]row bandage was applied patient to be discharged home will have follow-up tomorrow at dialysis. Currently in stable condition. Differential Diagnosis Differential Diagnoses: The differential diagnosis associated with the presentation includes Bleeding AV fistula Admission/Observation Consideration of admission/observation: Escalation of care including admission/observation considered Bleeding. No need to stay Lab Data MDM Lab Attestation statement: I reviewed the patient's lab results. 08/13/25 20:31 08/13/25 20:31 Labs: Lab Results 08/13/25 Range/Units 20:31 WBC 6.0 (4.8-10.8) X10*3/uL RBC 3.61 L (4.60-5.80) X10*6/uL Hgb 10.9 L (14.0-18.0) g/dl Hct 34.3 L (42.0-52.0) % MCV 95.0 (80.0-98.0) fL MCH 30.2 (27.0-33.0) pg MCHC 31.8 (31.0-36.0) g/dl RDW 17.4 H (11.0-16.0) % Plt Count 153 L (160-400) X10*3/uL MPV 10.1 (9.4-12.4) fL Immature Gran % (Auto) 0.2 (0.0-0.4) % Neut % (Auto) 72.9 (45-73) % Lymph % (Auto) 11.6 L (20-40) % [place] % (Auto) 9.3 (2-11) % Eos % (Auto) 5.0 H (0-4) % Baso % (Auto) 1.0 (0-2) % Lymph # (Auto) 0.7 L (1.2-4.9) X10*3/uL [place] # (Auto) 0.6 (0.1-1.2) X10*3/uL Eos # (Auto) 0.3 (0.0-0.4) X10*3/uL Baso # (Auto) 0.1 (0.0-0.2) X10*3/uL Abs Immat Gran (auto) 0.01 (0.00-0.03) X10*3/uL Absolute Neuts (auto) 4.4 (2.0-8.3) x10*3/uL Absolute Nucleated RBC 0.000 (0.0-0.012) X10*3/uL Nucleated RBC % (auto) 0.0 (0.0-0.2) /100WBC PT 13.7 H (10.9-12.4) SEC INR 1.2 H (0.9-1.1) Sodium 142 (135-145) mmol/L Potassium 4.6 (3.3-5.1) mmol/L Chloride 99 (96-108) mmol/L Carbon Dioxide 28 (22-29) mmol/L Anion Gap 20 (12-20) BUN 49 H (9-16) mg/dL Creatinine 9.06 H* (0.5-1.4) mg/dL Estim Creat Clear Calc 5.9 Estimated GFR 6 Random Glucose 86 (60-115) mg/dL Calcium 9.0 D (8.4-10.2) mg/dL External Record Review External record reviewed: Inpatient record Discharge Plan Discharge Clinical Impression: Hemorrhage from dialysis catheter Instructions: Arteriovenous Fistula Creation for Hemodialysis (DC) Prescriptions: No Action carvedilol 25 mg Tablet 25 mg PO SUTUTHSA@0900,2100 Rx Instructions: must administer with a meal/food carvedilol 25 mg Tablet 25 mg PO MOWEFR Rx Instructions: must administer with a meal/food on dialysis days acetaminophen 325 mg Tablet 650 mg PO Q6H PRN (Reason: Fever Or Pain) acetaminophen 650 mg Suppository 650 mg NH Q6H MDD 3gm/24h PRN (Reason: Fever Or Pain) nutritional supplements Liquid 1 ea PO TID Rx Instructions: 240 ml naloxone 0.4 mg/mL Solution 0.4 mg SUBCUT Q2M PRN (Reason: Opiate Reversal) Rx Instructions: NTExceed 10 mg total dose/episode thiamine HCl (vitamin B1) 100 mg Tablet 100 mg PO DAILY isosorbide mononitrate 120 mg Tablet Extended Release 24 Hr 120 mg PO DAILY amlodipine 10 mg Tablet 10 mg PO SUTUTHSA bisacodyl 10 mg Suppository 10 mg NH DAILY PRN (Reason: Constipation) pantoprazole 40 mg Tablet,Delayed Release (Dr/Ec) 40 mg PO DAILY@0630 docusate sodium [Colace] 100 mg Capsule 100 mg PO BID PRN (Reason: Constipation) gabapentin 100 mg Capsule 100 mg PO BEDTIME nystatin 100,000 unit/gram Powder 1 appl TOPICAL BID Rx Instructions: apply to groin Wescaps 1 mg Capsule 1 cap PO DAILY valsartan 160 mg Tablet 160 mg PO SUTUTHSA enoxaparin 60 mg/0.6 mL Syringe 60 mg SUBCUT DAILY cinacalcet [Sensipar] 60 mg Tablet 60 mg PO DAILY vitamin B complex-folic acid [B Complex 1 (with folic acid)] 0.4 mg Tablet 1 tab PO DAILY lactulose 10 gram/15 mL Solution 30 ml PO DAILY PRN (Reason: Constipation) lanthanum 1,000 mg Tablet,Chewable 2,000 mg PO BID Rx Instructions: administer with food; chew thoroughly before swallowing Icy Hot 30-10 % Cream 1 appl TOPICAL BID PRN (Reason: Pain) Rx Instructions: apply to lower back Eucerin Cream 1 appl TOPICAL Q8H PRN (Reason: Dry Skin) buprenorphine [Butrans] 5 mcg/hour Patch Weekly 1 patch TRANSDERMAL TH naloxone 4 mg/actuation [place],Non-Aerosol 4 mg INTRANASAL Q3M PRN (Reason: Opiate Reversal) Rx Instructions: spray 1 dose into ONE nostril; alternate nostrils w each dose until help arrives Referrals: Physician,Unknown J [Primary Care Provider, Medical] Referral Note: Please go to dialysis tomorrow Print Language: Ukrainian
[2025-08-13 23:58] VITALS: BP 167/79; PULSE 76; RESP 16; TEMP 36.7; O2SAT 93
[2025-08-14 00:11] VITALS: BP 167/79; PULSE 76; RESP 16; TEMP 36.7; O2SAT 93
== END 2025-08-14 00:12 | disposition skilled nursing facility (03) ==
PROVIDERS: Emergency Provider Emergency Medicine Emergency Medical Services
DX: T82.838A Hemorrhage due to vascular prosthetic devices, implants and grafts, initial encounter (principal); Y82.8 Other medical devices associated with adverse incidents; Y92.9 Unspecified place or not applicable; Z79.899 Other long term (current) drug therapy
CPT/HCPCS: 36415; 80048; 85025; 85610; 99284; J2597